=== PATIENT | female | born 1980 | race Two or more races ===

== ENCOUNTER 2024-07-18 18:13 | Emergency (ER) | payer MEDICAID, SELFPAY ==
--- NOTE | 2024-07-18 18:23 | PC.NURSE ---
WHEN CALLED FROM LOBBY FOR ROOM TO BE SEEN, PT WAS FOUND OUTSIDE SMOKING
[2024-07-18 18:28] VITALS: BP 131/86; PULSE 104; RESP 20; TEMP 37.2; O2SAT 99; BMI 25.1
--- NOTE | 2024-07-18 18:40 | XR_ITS ---
Examination: AP lateral soft tissue neck 2 views Technique one AP lateral soft tissue neck 2 views Exam date and time: July 18, 2024 1858 hrs. Indications: Food stuck in throat today. Findings: Adequate alignment cervical vertebral bodies Normal epiglottis No opaque foreign body noted Mild prevertebral soft tissue prominence anterior to C6 and C7 Impression: No opaque foreign body
--- NOTE | 2024-07-18 18:40 | PD.EDRME ---
Rapid Medical Screening Exam E Arrival date/time: 07/18/24 18:13 44F with history of meth use presents to ED with something stuck in throat. Patient unable to drink water at this time. Chief Complaint: Dental/Oral/Throat Time Seen by Provider: 07/18/24 18:46 Vital signs: Vital Signs Temperature 98.9 F 07/18/24 18:28 Pulse Rate 104 H 07/18/24 18:28 Respiratory Rate 20 07/18/24 18:28 Blood Pressure 131/86 H 07/18/24 18:28 Pulse Oximetry (%) 99 07/18/24 18:28 Oxygen Delivery Method Room Air 07/18/24 18:28
[2024-07-18] MEDS: GLUCAGON INJ 1 MG VIAL IM (19:46)
--- NOTE | 2024-07-18 19:54 | EDNOTE_ITS ---
ED General RME/HPI General Chief complaint: Dental/Oral/Throat Stated complaint: FOOD STUCK IN THROAT TODAY Time Seen by Provider: 07/18/24 18:46 Arrival date/time: 07/18/24 18:13 Limitations: no limitations RME / HPI RME / HPI narrative: DR. MARTINES MAIN ED EVALUATION: 44 year old female with past medical history significant for anxiety and methamphetamine abuse presents to the Emergency Department with complaint of something stuck in throat. Patient unable to drink water at this time. Patient has a difficulty swallowing, but can tolerate their saliva. No drooling, chest pain, neck pain, regurgitation of food, or painful swallowing. History of the same in the past. Related Data Previous Rx's ?Medication ?Instructions ?Recorded pantoprazole 40 mg tablet,delayed 40 mg PO QDAY #90 tabs 06/07/21 release (Protonix) pantoprazole 40 mg tablet,delayed 40 mg PO QDAY #30 tabs 09/29/23 release (Protonix) Allergies Allergy/AdvReac Type Severity Reaction Status Date / Time No Known Allergies Allergy Verified 07/18/24 18:16 Review of Systems Review of Systems Systems Reviewed: All systems reviewed, normal except as documented Narrative Review of Systems: CV: no chest pain, Heent: No neck pain, regurgitation of food, or pain with swallowing Past Medical History Past Medical History CARDIAC: Negative Congestive Heart Failure RESPIRATORY: Negative Chronic Obstructive Pulmonary Disease (COPD) GENITOURINARY: Negative Renal Disease ENDOCRINE: Negative Diabetes Mellitus Type 1 or Diabetes Mellitus Type 2 PSYCHO/SOCIAL: Positive Psychiatric Problems, Recreational Drug Use, Depression, Anxiety and Behavior Problems Surgical History SURGICAL: Positive Tubal Ligation Social History SMOKING STATUS: Heavy (> 1 pack/day) ED Exam General Limitations: Present no limitations General appearance: Present alert and in no apparent distress Head Head exam: Present atraumatic Eye Eye exam: Present normal appearance, PERRL and EOMI ENT ENT exam: Present normal exam, normal oropharynx and mucous membranes moist Neck Neck exam: Present normal inspection, full ROM and trachea midline Chest Chest inspection: Present normal inspection and symmetric chest wall rise Respiratory Respiratory exam: Present normal lung sounds bilaterally Cardiovascular Cardiovascular exam: Present regular rate, normal rhythm and normal heart sounds Abdominal Exam Abdominal exam: Present soft and normal bowel sounds Extremities Exam Extremities exam: Present normal inspection and full ROM Back Exam Back exam: Present normal inspection and full ROM Neurological Exam Neurological exam: Present alert, oriented X3 and CN II-XII intact Psychiatric Psychiatric exam: Present normal affect and normal mood Skin Skin exam: Present warm, dry, intact and normal color Course Quality Measures none Orders Category Date Time Status Blood glucose [Bedside Blood Glucose] NOW Care 07/18/24 18:40 Completed XR soft tissue neck Stat Exams 07/18/24 18:40 Completed Glucagon Inj Med 07/18/24 18:40 Discontinued 1 mg IM X1 ONE Glucagon Inj Med 07/18/24 20:00 Discontinued 1 mg IVP X1 ONE Ondansetron Inj [Zofran Inj] Med 07/18/24 20:00 Discontinued 4 mg IV X1 ONE Pantoprazole [Protonix] Med 07/18/24 20:44 Discontinued 20 mg PO X1 ONE Sodium Chloride 0.9% 500 ml [Ns] 500 ml Med 07/18/24 20:00 Discontinued IV 999 mls/hr Vital Signs Vital signs: Vital Signs Temperature 98.9 F 07/18/24 18:28 Pulse Rate 104 H 07/18/24 18:28 Respiratory Rate 20 07/18/24 18:28 Blood Pressure 131/86 H 07/18/24 18:28 Pulse Oximetry (%) 99 07/18/24 18:28 Oxygen Delivery Method Room Air 07/18/24 18:28 [facility] Patient data External records reviewed:: [facility] previous records (Reviewed last ED visit dated 12/16/23, discharged with the following: Foreign body of esophagus.) Clinical information provided by:: patient Social determinants that could affect healthcare access:: substance use Patient has the following chronic illnesses:: Anxiety and methamphetamine abuse. How is presenting disease/condition affected by chronic disease/condition?: exacerbated by Evaluation data The following diagnostics were reviewed and interpreted by me:: radiology exam(s) Lab and/or radiology exams considered but not ordered:: none Interpretation Summary: Procedure(s): XR soft tissue neck Accession Number(s): [id number] cc: Jorge Mittal MD; John Iglesias PA-C~ Examination: AP lateral soft tissue neck 2 views Technique one AP lateral soft tissue neck 2 views Exam date and time: July 18, 2024 1858 hrs. Indications: Food stuck in throat today. Findings: Adequate alignment cervical vertebral bodies Normal epiglottis No opaque foreign body noted Mild prevertebral soft tissue prominence anterior to C6 and C7 Impression: No opaque foreign body Dictated By: Jorge Mittal MD Medications Medications considered but not ordered:: none Medication administrations:: Medication Administration History Discontinued Medications Glucagon (Glucagon Inj 1 Mg Vial) 1 mg IM X1 ONE Stop: 07/18/24 18:41 Last Admin: 07/18/24 19:46 Dose: 1 mg Documented By: HAYDER Glucagon (Glucagon Inj 1 Mg Vial) 1 mg IVP X1 ONE Stop: 07/18/24 20:01 Last Admin: 07/18/24 21:15 Dose: Not Given Documented By: HAYDER Non-Admin Reason: Duplicate Medication on eMAR Sodium Chloride (Ns) 500 mls @ 999 mls/hr IV .Q31M ONE Stop: 07/18/24 20:30 Last Admin: 07/18/24 20:59 Dose: Not Given Documented By: JAMES Non-Admin Reason: Discontinued Ondansetron HCl (Ondansetron Inj 2 Mg/Ml Inj 2 Ml) 4 mg IV X1 ONE; Protocol Stop: 07/18/24 20:01 Last Admin: 07/18/24 20:59 Dose: Not Given Documented By: JAMES Non-Admin Reason: Discontinued Pantoprazole Sodium (Pantoprazole 20 Mg Tablet) 20 mg PO X1 ONE Stop: 07/18/24 20:45 Last Admin: 07/18/24 20:59 Dose: Not Given Documented By: JAMES Non-Admin Reason: Discontinued see above Consultations Consultation(s) initiated? (list below): No Diagnosis Differential Diagnosis ED Complaint MDM: Foreign body of esophagus, esophagus cancer, other Most likely diagnosis given after review of the tests above:: Foreign body of esophagus. Admission Indicated Admission indicated?: not indicated Explain why admission is indicated or not indicated:: tolpo Admission Request Was there a request for admission?: No Disposition Plan Disposition Plan: Discharge Discharge Attestation Discharge Attestation: The patient and all family members were given an opportunity to ask questions and understood the discharge instructions. Discharge instructions specifically effects, indications for sooner follow up or return to the emergency department, and the expected course of current diagnosis. Patient condition: Stable Medical Decision Making MDM Narrative MDM Narrative: IClementine, am scribing for and in the presence of Dr. Martines. Differential Diagnosis Differential Diagnosis: Foreign body of esophagus, esophagus cancer, other Discharge Plan Plan Patient Disposition: HOME (Self Care) Patient condition on transfer: Stable Prescriptions/Referrals Prescriptions/Med Rec: No Action pantoprazole [Protonix] 40 mg Tablet,Delayed Release (Dr/Ec) 40 mg PO QDAY Qty: 90 0RF pantoprazole [Protonix] 40 mg tablet,delayed release (DR/EC) 40 mg PO QDAY Qty: 30 0RF Referrals: Lux Joyner MD [Primary Care Provider] - In 1 week Problem List Clinical Impression: Esophageal foreign body Patient/Caregiver Discharge Instructions Diet Instructions: Ensure you are chewing your food and/or blend it to avoid getting a food impaction. Education Materials: ED Swallowed Foreign Body (Adult) Additional Instructions: You will need to get a follow-up appointment with your primary care physician to get a referral to animal feeder in the next 2 to 4 weeks. Return to emergency department worsening symptoms or any other concerns peer Print Language: Korean Stand Alone Forms: [facility] Award Info., Patient Portal Info Letter
== END 2024-07-18 21:17 | disposition home or self-care (01) ==
PROVIDERS: Emergency Provider Emergency Medicine; PCP Family Medicine
DX: T18.128A Food in esophagus causing other injury, initial encounter (principal); W44.F3XA Food entering into or through a natural orifice, initial encounter
CPT/HCPCS: 70360; 96372; 99283; J1610

== ENCOUNTER 2024-08-23 12:20 | Emergency (ER) | payer MEDICAID, SELFPAY ==
--- NOTE | 2024-08-23 12:24 | XR_ITS ---
Examination: Knee, right , 3 views Technique: Knee AP, lateral, oblique 3 views Date and time of exam: August 23, 2024 1322 hrs. Indications: Right knee pain beginning 3 days ago Findings: Moderate osteopenia No fracture No dislocation Moderate to large knee effusion Impression: No fracture Moderate to large knee effusion, seen with internal derangement of the knee
--- NOTE | 2024-08-23 12:25 | EDNOTE_ITS ---
ED General RME/HPI General Chief complaint: Extremity Injury, Lower Stated complaint: RIGHT KNEE PAIN Time Seen by Provider: 08/23/24 12:24 Arrival date/time: 08/23/24 12:20 RME / HPI RME / HPI narrative: 44-year-old female patient came in for evaluation regarding right knee pain. 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 Onset of symptoms earlier this morning. Patient denies any trauma or fall. Denies any fever. Denies any other complaints. Patient told me that she is having difficulty ambulating due to pain. Patient took ibuprofen earlier today with no relief. Related Data Previous Rx's ?Medication ?Instructions ?Recorded pantoprazole 40 mg tablet,delayed 40 mg PO QDAY #90 tabs 06/07/21 release (Protonix) pantoprazole 40 mg tablet,delayed 40 mg PO QDAY #30 tabs 09/29/23 release (Protonix) ibuprofen 800 mg tablet 800 mg PO TID PRN pain #30 tabs 08/23/24 Allergies Allergy/AdvReac Type Severity Reaction Status Date / Time No Known Allergies Allergy Verified 07/18/24 18:16 Review of Systems Review of Systems Narrative Review of Systems: Review of system reviewed and within normal limits except mentioned in HPI ED Exam Narrative Physical exam: VITAL SIGNS: Reviewed. GENERAL APPEARANCE: Alert and interactive, follows commands, no acute distress, HEAD AND FACE: Non-traumatic. ENT: PERRL, pink conjunctivitis, eyelid no trauma, Mucous membrane moist. NECK: Supple, nontender, no nuchal rigidity. CHEST: No tenderness, no crepitus, no paradoxical movement, no retractions. LUNGS: Clear, well ventilated, symmetric, no rales, no wheezing, no ronchi, no stridor, good breath sounds bilaterally. HEART: Regular rate, regular rhythm, no murmur, no gallops. ABDOMEN: Soft, positive bowel sounds, nondistended, no guarding, nontender, no rebound, no masses, RECTAL: Deferred. GENITAL: Deferred. NEUROLOGICAL: Gross motor function intact sensory function intact, Appropriate for age. MUSCULOSKELETAL: low back nontender, full range of motion. EXTREMITIES: Right knee tenderness, no swelling no redness no deformity, full r joseph of motion. No calf muscle tenderness SKIN: Color pink, dry, no rash, no lacerations, no abrasions, no contusions. LYMPHATICS: Deferred. Course Quality Measures none Orders Category Date Time Status Crutches .NOW Care 08/23/24 12:24 Active XR knee limited RT 2V Stat Exams 08/23/24 12:24 Completed Ketorolac Inj [Toradol Inj] Med 08/23/24 12:24 Discontinued 30 mg IM X1 ONE Referral Safety Admin Assistant NOW SS 08/23/24 15:17 Active Vital Signs Vital signs: Vital Signs Temperature 98.7 F 08/23/24 14:06 Pulse Rate 83 08/23/24 14:06 Respiratory Rate 18 08/23/24 14:06 Blood Pressure 93/61 08/23/24 14:06 Pulse Oximetry (%) 100 08/23/24 14:06 Oxygen Delivery Method Room Air 08/23/24 14:06 MDM Patient data External records reviewed:: None Clinical information provided by:: patient Social determinants that could affect healthcare access:: housing Patient has the following chronic illnesses:: None How is presenting disease/condition affected by chronic disease/condition?: no chronic disease Evaluation data The following diagnostics were reviewed and interpreted by me:: radiology exam(s) Lab and/or radiology exams considered but not ordered:: None Interpretation Summary: X-ray of the knee right showed No fracture Moderate to large knee effusion, seen with internal derangement of the knee Medications Medications considered but not ordered:: None Medication administrations:: Medication Administration History Discontinued Medications Ketorolac Tromethamine (Ketorolac Inj 60 Mg/2 Ml Vial) 30 mg IM X1 ONE Stop: 08/23/24 12:25 Last Admin: 08/23/24 13:51 Dose: 30 mg Documented By: Toradol IM Consultations Consultation(s) initiated? (list below): No Diagnosis Differential Diagnosis ED Complaint MDM: Knee pain, knee effusion, knee sprain Most likely diagnosis given after review of the tests above:: Knee pain Admission Indicated Admission indicated?: not indicated Explain why admission is indicated or not indicated:: Stable Admission Request Was there a request for admission?: No Disposition Plan Disposition Plan: Discharge Discharge Attestation Discharge Attestation: The patient and all family members were given an opportunity to ask questions and understood the discharge instructions. Discharge instructions specifically effects, indications for sooner follow up or return to the emergency department, and the expected course of current diagnosis. Patient condition: Stable Medical Decision Making MDM Narrative MDM Narrative: 44-year-old female patient came in for evaluation regarding right knee pain. 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 Onset of symptoms earlier this morning. Patient denies any trauma or fall. Denies any fever. Denies any other complaints. Patient told me that she is having difficulty ambulating due to pain. Patient took ibuprofen earlier today with no relief. X-ray of the knee No fracture Moderate to large knee effusion, seen with internal derangement of the knee Patient was referred to [facility] for some hypertensive issues help regarding being homelessness. Was seen by [facility] and was given resources Differential Diagnosis Differential Diagnosis: Knee pain, knee effusion, knee sprain Discharge Plan Plan Patient Disposition: HOME (Self Care) Disposition Comment: stable Prescriptions/Referrals Prescriptions/Med Rec: New ibuprofen 800 mg tablet 800 mg PO TID PRN (Reason: pain) Qty: 30 0RF No Action pantoprazole [Protonix] 40 mg Tablet,Delayed Release (Dr/Ec) 40 mg PO QDAY Qty: 90 0RF pantoprazole [Protonix] 40 mg tablet,delayed release (DR/EC) 40 mg PO QDAY Qty: 30 0RF Referrals: Lux Joyner MD [Primary Care Provider] - In 1 week Problem List Clinical Impression: Acute knee pain Patient/Caregiver Discharge Instructions Discharge Activity: activity as tolerated Education Materials: Knee Pain Additional Instructions: Thank you for the opportunity for serving you today. You are stable for discharged . You are advised to: Follow-up with your PCP in 1 to 2 days Return to ED for worsening of symptoms Increase oral fluids Take medication as prescribed Ambulate with crutches as needed Print Language: Wolof Stand Alone Forms: [employer] Award Info., Patient Portal Info Letter PA/YAEL Supervising Physician PA/YAEL Supervising Physician: MD James
[2024-08-23 13:00] VITALS: PULSE 86; RESP 18; O2SAT 96; BMI 25.7
[2024-08-23] MEDS: KETOROLAC INJ 60 MG/2 ML VIAL 30 MG IM (13:51)
[2024-08-23 14:06] VITALS: BP 93/61; PULSE 83; RESP 18; TEMP 37.1; O2SAT 100
--- NOTE | 2024-08-23 21:00 | PC.NURSE ---
CALLED PT FOR DC AND NO ANSWER
--- NOTE | 2024-08-23 21:15 | PC.NURSE ---
CALLED PT FOR DC AND NO ANSWER
--- NOTE | 2024-08-23 21:16 | PC.NURSE ---
CALLED PT FOR DC AND NO ANSWER.
== END 2024-08-23 21:17 | disposition home or self-care (01) ==
PROVIDERS: Emergency Provider Emergency Medicine; PCP Family Medicine
DX: M25.561 Pain in right knee (principal); Z59.00 Homelessness unspecified
CPT/HCPCS: 73560; 96372; 99283; J1885

== ENCOUNTER 2024-08-28 15:08 | Emergency (ER) | payer MEDICAID, SELFPAY ==
[2024-08-28 15:11] VITALS: BP 104/67; PULSE 87; RESP 18; TEMP 37.4; O2SAT 96; BMI 25.7
[2024-08-28 15:14] VITALS: PULSE 97; RESP 18; O2SAT 96
--- NOTE | 2024-08-28 15:45 | XR_ITS ---
Examination: PA lateral chest 2 views TECHNIQUE: Upright PA lateral chest 2 views Exam date and time: August 28, 2024 1537 hours INDICATIONS: Coughing today. FINDINGS: Normal heart size No lobar pneumonia The osseous structures are intact IMPRESSION: No lobar pneumonia identified
--- NOTE | 2024-08-28 15:46 | EDNOTE_ITS ---
Upper Respiratory Inf. RME/HPI General Stated Complaint: BODY ACHES Time Seen by Provider: 08/28/24 15:14 Source: patient Arrival date/time: 08/28/24 15:08 44-year-old female with no known medical history presents to the emergency room with a chief complaint of bodyaches, cough, fever, congestion x 2 days Mode of arrival: ambulatory Limitations: no limitations Related Data Previous Rx's ?Medication ?Instructions ?Recorded pantoprazole 40 mg tablet,delayed 40 mg PO QDAY #90 ta bs 06/07/21 release (Protonix) pantoprazole 40 mg tablet,delayed 40 mg PO QDAY #30 ta bs 09/29/23 release (Protonix) ibuprofen 800 mg tablet 800 mg PO TID PRN pain #30 t abs 08/23/24 acetaminophen 325 mg capsule 650 mg (2 x 325 mg) PO QI D PRN 08/28/24 fever or pain 7 days #30 caps Allergies Allergy/AdvReac Type Severity Reaction Status Date / Time No Known Allergies Allergy Verified 07/18/24 18:16 Review of Systems Review of Systems Systems Reviewed: All systems reviewed, normal except as documented Constitutional Constitutional: Reports system reviewed and no additional complaints, except as documented, Denies fatigue, Reports fever(s), Reports headache(s) and Reports weakness Eyes Eyes: Reports system reviewed and no additional complaints, except as documented, Denies blurry vision and Denies change in vision ENT Ears, Nose, Mouth, and Throat: Reports system reviewed and no additional complaints, except as documented, Denies otalgia, Reports headache(s), Denies nasal congestion, Denies throat swelling and Denies vertigo Cardiovascular Cardiovascular: Reports system reviewed and no additional complaints, except as documented, Denies chest pain, Reports dyspnea and Denies dyspnea on exertion Respiratory Respiratory: Reports system reviewed and no additional complaints, except as documented, Reports chest congestion, Reports cough, Reports dyspnea, Denies dyspnea on exertion and Denies wheezing Gastrointestinal Gastrointestinal: Reports system reviewed and no additional complaints, except as documented, Denies abdominal pain, Denies cramping, Denies nausea and Denies vomiting Genitourinary Genitourinary: Reports system reviewed and no additional complaints, except as documented Musculoskeletal Musculoskeletal: Reports system reviewed and no additional complaints, except as documented and Denies back pain Integumentary/Breasts Skin/Breast: Reports system reviewed and no additional complaints, except as documented and Denies wounds Neurologic Neurologic: Reports system reviewed and no additional complaints, except as documented, Denies confusion, Reports headache(s), Denies lack of coordination, Denies vertigo and Reports weakness Psychiatric Psychiatric: Reports system reviewed and no additional complaints, except as documented, Denies anxiety, Denies confusion, Denies depression, Denies paranoia, Denies suicidal ideation and Denies tactile hallucinations Endocrine Endocrine: Reports system reviewed and no additional complaints, except as documented and Denies fatigue Hematologic/Lymphatic Hematologic/Lymphatic: Reports system reviewed and no additional complaints, except as documented and Denies lymphadenopathy Allergic/Immunologic Allergic/Immunologic: Reports system reviewed and no additional complaints, except as documented, Denies throat swelling, Denies urticaria and Denies wheezing Past Medical History Past Medical History CARDIAC: Negative Congestive Heart Failure RESPIRATORY: Negative Chronic Obstructive Pulmonary Disease (COPD) GENITOURINARY: Negative Renal Disease ENDOCRINE: Negative Diabetes Mellitus Type 1 or Diabetes Mellitus Type 2 PSYCHO/SOCIAL: Positive Psychiatric Problems, Recreational Drug Use, Depression, Anxiety and Behavior Problems Surgical History SURGICAL: Positive Tubal Ligation Social History SMOKING STATUS: Current some day smoker ED Exam General Limitations: Present no limitations General appearance: Present alert and in no apparent distress Head Head exam: Present atraumatic Eye Eye exam: Present normal appearance, PERRL and EOMI ENT ENT exam: Present normal exam, normal oropharynx and mucous membranes moist Neck Neck exam: Present normal inspection, full ROM and trachea midline Chest Chest inspection: Present normal inspection and symmetric chest wall rise Respiratory Respiratory exam: Present normal lung sounds bilaterally; Absent respiratory distress, wheezes, stridor, accessory muscle use or prolonged expiratory phase Cardiovascular Cardiovascular exam: Present regular rate, normal rhythm and normal heart sounds Abdominal Exam Abdominal exam: Present soft and normal bowel sounds Extremities Exam Extremities exam: Present normal inspection and full ROM Back Exam Back exam: Present normal inspection and full ROM Neurological Exam Neurological exam: Present alert, oriented X3 and CN II-XII intact Psychiatric Psychiatric exam: Present normal affect and normal mood Skin Skin exam: Present warm, dry, intact and normal color Course Quality Measures none Orders Category Date Time Status Bedside COVID-19 Antigen Test NOW Care 08/28/24 15:45 Active Bedside Influenza A&B Antigen Test NOW Care 08/28/24 15:45 Completed XR chest 2V Stat Exams 08/28/24 15:45 Completed Acetaminophen Tab [Tylenol ES Tab] Med 08/28/24 15:46 Discontinued 1,000 mg PO X1 ONE Vital Signs Vital signs: Vital Signs Temperature 99.4 F 08/28/24 15:11 Pulse Rate 87 08/28/24 15:11 Respiratory Rate 18 08/28/24 15:11 Blood Pressure 104/67 08/28/24 15:11 Pulse Oximetry (%) 96 08/28/24 15:11 Oxygen Delivery Method Room Air 08/28/24 15:11 O2 saturation 96% within normal limits Upper Respiratory Infection MDM Narrative MDM Narrative:: 44-year-old female with no known medical history presents to the emergency room with a chief complaint of bodyaches, cough, fever, congestion x 2 days The patient is hemodynamically stable and in no apparent distress. Patient has clear bilateral lung sounds with no wheezing stridor or any abnormal breath sounds. Influenza a test was positive. COVID-19 was negative. Chest x-ray was negative for any pneumonic infiltrates. Patient was discharged and educated to follow-up with primary care provider and return to the emergency room for any evidence of worsening signs or symptoms Patient data External records reviewed:: [facility] previous records Clinical information provided by:: patient Social determinants that could affect healthcare access:: none Patient has the following chronic illnesses:: No chronic illness How is presenting disease/condition affected by chronic disease/condition?: no chronic disease Evaluation data The following diagnostics were reviewed and interpreted by me:: lab results and radiology exam(s) Lab and/or radiology exams considered but not ordered:: Labs and radiology exams considered and ordered Interpretation Summary: Chest x-ray-no pneumonic infiltrates Medications / Prescriptions Medications or Prescriptions considered but not ordered:: Medication given Medication administrations:: Medication Administration History Discontinued Medications Acetaminophen (Acetaminophen 500 Mg Tablet) 1,000 mg PO X1 ONE Stop: 08/28/24 15:47 Last Admin: 08/28/24 16:02 Dose: 1,000 mg Documented By: Medication given Consultations Consultation(s) initiated? (list below): No Diagnosis Upper Respiratory Differential Diagnosis: upper respiratory infection, viral infection, bronchitis, influenza and pharyngitis Most likely diagnosis given after review of the tests above:: Influenza a Admission Indicated Admission indicated?: not indicated Admission Request Was there a request for admission?: No Disposition Plan Disposition Plan: Discharge Discharge Attestation Discharge Attestation: The patient and all family members were given an opportunity to ask questions and understood the discharge instructions. Discharge instructions specifically effects, indications for sooner follow up or return to the emergency department, and the expected course of current diagnosis. Patient condition: Stable Discharge Plan Plan Patient Disposition: HOME (Self Care) Disposition Comment: Stable Prescriptions/Referrals Prescriptions/Med Rec: New acetaminophen 325 mg capsule 650 mg PO QID PRN (Reason: fever or pain) 7 Days Qty: 30 0RF No Action pantoprazole [Protonix] 40 mg Tablet,Delayed Release (Dr/Ec) 40 mg PO QDAY Qty: 90 0RF ibuprofen 800 mg tablet 800 mg PO TID PRN (Reason: pain) Qty: 30 0RF pantoprazole [Protonix] 40 mg tablet,delayed release (DR/EC) 40 mg PO QDAY Qty: 30 0RF Referrals: Lux Joyner MD [Primary Care Provider] - In 1 week Problem List Clinical Impression: Influenza A Patient/Caregiver Discharge Instructions Education Materials: ED Influenza (Adult) Additional Instructions: Please follow-up with your primary care provider in the next 24 to 48 hours. Your influenza test was positive for influenza A. For any evidence of worsening signs or symptoms please return to the emergency room immediately. Please continue to take Tylenol and ibuprofen for fever management and increase your fluid and oral intake. Print Language: Faroese Stand Alone Forms: Ira Award Info., Patient Portal Info Letter PA/YAEL Supervising Physician PA/YAEL Supervising Physician: Dr. Orantes
[2024-08-28] MEDS: ACETAMINOPHEN 500 MG TABLET 1000 MG PO (16:02)
--- NOTE | 2024-08-28 17:11 | PC.CC ---
Paula AYON was consulted regarding patient needing to speak to social media specialist. Paula AYON made [id number] contact with patient. ASW introduced self, role, and reason for visit. Patient appeared alert and oriented to self, location, and situation.?Patient reports she is homeless and has been sleeping at a local park. ASW provided patient with a [facility] resource guide. Patient reports she is physically not feeling well and would like some medication. ASW provided this updated information to anders Carl.
== END 2024-08-28 17:31 | disposition home or self-care (01) ==
PROVIDERS: Emergency Provider Emergency Medicine; PCP Family Medicine
DX: J10.1 Influenza due to other identified influenza virus with other respiratory manifestations (principal); F17.210 Nicotine dependence, cigarettes, uncomplicated
CPT/HCPCS: 71046; 87400; 87811; 99283; A9270

== ENCOUNTER 2024-08-29 03:38 | Emergency (ER) | payer MEDICAID, SELFPAY ==
[2024-08-29 03:39] VITALS: PULSE 89; RESP 18; BMI 24.7
[2024-08-29 03:55] VITALS: BP 132/85; PULSE 89; RESP 18; TEMP 36.8; O2SAT 100
[2024-08-29] MEDS: ACETAMINOPHEN 500 MG TABLET 1000 MG PO (04:03)
[2024-08-29] MEDS: NAPROXEN 250 MG TABLET 500 MG PO (04:03)
--- NOTE | 2024-08-29 04:05 | EDNOTE_ITS ---
Upper Respiratory Inf. RME/HPI General Chief Complaint: Flu Like Symptoms Stated Complaint: FULL BODY ACHES,FLU + Time Seen by Provider: 08/29/24 03:57 Arrival date/time: 08/29/24 03:38 44F with history of homelessness and drug abuse presents to ED with body aches. Patient was here yesterday and diagnosed with flu A. 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 Patient would also like a blanket and some food. Limitations: no limitations Related Data Previous Rx's ?Medication ?Instructions ?Recorded pantoprazole 40 mg tablet,delayed 40 mg PO QDAY #90 ta bs 06/07/21 release (Protonix) pantoprazole 40 mg tablet,delayed 40 mg PO QDAY #30 ta bs 09/29/23 release (Protonix) ibuprofen 800 mg tablet 800 mg PO TID PRN pain #30 t abs 08/23/24 acetaminophen 325 mg capsule 650 mg (2 x 325 mg) PO QI D PRN 08/28/24 fever or pain 7 days #30 caps Allergies Allergy/AdvReac Type Severity Reaction Status Date / Time No Known Allergies Allergy Verified 07/18/24 18:16 Review of Systems Review of Systems Systems Reviewed: All systems reviewed, normal except as documented Constitutional Constitutional: Reports system reviewed and no additional complaints, except as documented, Reports as per HPI, Reports body ache(s), Denies fever(s) and Denies headache(s) ENT Ears, Nose, Mouth, and Throat: Denies disequilibrium and Denies headache(s) Cardiovascular Cardiovascular: Reports system reviewed and no additional complaints, except as documented, Denies chest pain and Denies dyspnea Respiratory Respiratory: Reports system reviewed and no additional complaints, except as documented, Denies cough and Denies dyspnea Gastrointestinal Gastrointestinal: Reports system reviewed and no additional complaints, except as documented, Denies abdominal pain, Denies nausea and Denies vomiting Neurologic Neurologic: Reports system reviewed and no additional complaints, except as documented, Denies confusion, Denies disequilibrium and Denies headache(s) Psychiatric Psychiatric: Denies confusion Past Medical History Past Medical History CARDIAC: Negative Congestive Heart Failure RESPIRATORY: Negative Chronic Obstructive Pulmonary Disease (COPD) GENITOURINARY: Negative Renal Disease ENDOCRINE: Negative Diabetes Mellitus Type 1 or Diabetes Mellitus Type 2 PSYCHO/SOCIAL: Positive Psychiatric Problems, Recreational Drug Use, Depression, Anxiety and Behavior Problems Surgical History SURGICAL: Positive Tubal Ligation Social History SMOKING STATUS: Never smoker ED Exam General Limitations: Present no limitations General appearance: Present alert and in no apparent distress Head Head exam: Present atraumatic Eye Eye exam: Present normal appearance, PERRL and EOMI ENT ENT exam: Present normal exam, normal oropharynx and mucous membranes moist Neck Neck exam: Present normal inspection, full ROM and trachea midline Chest Chest inspection: Present normal inspection and symmetric chest wall rise Respiratory Respiratory exam: Present normal lung sounds bilaterally Cardiovascular Cardiovascular exam: Present regular rate, normal rhythm and normal heart sounds Abdominal Exam Abdominal exam: Present soft and normal bowel sounds Extremities Exam Extremities exam: Present normal inspection and full ROM Back Exam Back exam: Present normal inspection and full ROM Neurological Exam Neurological exam: Present alert, oriented X3 and CN II-XII intact Psychiatric Psychiatric exam: Present normal affect and normal mood Skin Skin exam: Present warm, dry, intact and normal color Course Quality Measures none Orders Category Date Time Status Acetaminophen Tab [Tylenol ES Tab] Med 08/29/24 03:57 Discontinued 1,000 mg PO X1 ONE Naproxen [Naprosyn] Med 08/29/24 03:57 Discontinued 500 mg PO X1 ONE Vital Signs Vital signs: Vital Signs Temperature 98.2 F 08/29/24 03:55 Pulse Rate 89 08/29/24 03:55 Respiratory Rate 18 08/29/24 03:55 Blood Pressure 132/85 H 08/29/24 03:55 Pulse Oximetry (%) 100 08/29/24 03:55 Oxygen Delivery Method Room Air 08/29/24 03:55 O2 at 100% on RA and WNLs Upper Respiratory Infection MDM Narrative MDM Narrative:: 44F with history of homelessness and drug abuse presents to ED with body aches. Patient was here yesterday and diagnosed with flu A. 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 Patient would also like a blanket and some food. Physical exam reveals clear ENT and lungs. Patient is afebrile, calm, and alert. Food and meds given. Patient data External records reviewed:: [facility] previous records Clinical information provided by:: patient Social determinants that could affect healthcare access:: substance use Patient has the following chronic illnesses:: homelessness and drug use How is presenting disease/condition affected by chronic disease/condition?: exacerbated by Evaluation data The following diagnostics were reviewed and interpreted by me:: other (specify) (none) Lab and/or radiology exams considered but not ordered:: not ordered Interpretation Summary: n/a Medications / Prescriptions Medications or Prescriptions considered but not ordered:: ordered Medication administrations:: Medication Administration History Discontinued Medications Acetaminophen (Acetaminophen 500 Mg Tablet) 1,000 mg PO X1 ONE Stop: 08/29/24 03:58 Last Admin: 08/29/24 04:03 Dose: 1,000 mg Documented By: POLLY Naproxen (Naproxen 250 Mg Tablet) 500 mg PO X1 ONE Stop: 08/29/24 03:58 Last Admin: 08/29/24 04:03 Dose: 500 mg Documented By: POLLY above Consultations Consultation(s) initiated? (list below): No Diagnosis Upper Respiratory Differential Diagnosis: upper respiratory infection, croup, otitis media, sinusitis, viral infection, bronchitis, influenza and pharyngitis Most likely diagnosis given after review of the tests above:: flu A Admission Indicated Admission indicated?: not indicated Admission Request Was there a request for admission?: No Disposition Plan Disposition Plan: Discharge Discharge Attestation Discharge Attestation: The patient and all family members were given an opportunity to ask questions and understood the discharge instructions. Discharge instructions specifically effects, indications for sooner follow up or return to the emergency department, and the expected course of current diagnosis. Patient condition: Stable Discharge Plan Plan Patient Disposition: HOME (Self Care) Disposition Comment: Stable Prescriptions/Referrals Prescriptions/Med Rec: No Action pantoprazole [Protonix] 40 mg Tablet,Delayed Release (Dr/Ec) 40 mg PO QDAY Qty: 90 0RF ibuprofen 800 mg tablet 800 mg PO TID PRN (Reason: pain) Qty: 30 0RF acetaminophen 325 mg capsule 650 mg PO QID PRN (Reason: fever or pain) 7 Days Qty: 30 0RF pantoprazole [Protonix] 40 mg tablet,delayed release (DR/EC) 40 mg PO QDAY Qty: 30 0RF Referrals: Lux Joyner MD [Primary Care Provider] - In 1 week Problem List Clinical Impression: Influenza Patient/Caregiver Discharge Instructions Education Materials: ED Influenza (Adult) Additional Instructions: Please follow-up with PCP within 24-48 hours and return immediately if symptoms worsen. Ibuprofen/Tylenol can be used simultaneously for greater fever/pain control. Benadryl is good for cough, congestion, and sleep. Print Language: Venezuelan Stand Alone Forms: Patient Portal Info Letter PA/MANAGER TRUCK Supervising Physician PA/MANAGER TRUCK Supervising Physician: Dr. Tabares
== END 2024-08-29 04:11 | disposition home or self-care (01) ==
PROVIDERS: Emergency Provider Emergency Medicine; PCP Family Medicine
DX: J10.1 Influenza due to other identified influenza virus with other respiratory manifestations (principal)
CPT/HCPCS: 99282; A9270

== ENCOUNTER 2024-08-29 16:00 | Inpatient (IN) | payer MEDICAID, SELFPAY ==
[2024-08-29] VITALS (13 sets, daily range): BP systolic 75–96; BP diastolic 47–70; PULSE 60–91; RESP 7–20; TEMP 36.4–36.6; O2SAT 95–100; BMI 23.9
[2024-08-29] MEDS: SODIUM CHLORIDE 0.9% 1000 ML 1,000 ML 999 ML IV ×3 (16:20→18:56)
--- NOTE | 2024-08-29 16:29 | PD.EDSYNC ---
ED Syncope RME/HPI General Chief Complaint: Syncope / Near Syncope Stated Complaint: SYNCOPE Time Seen by Provider: 08/29/24 16:14 Arrival date/time: 08/29/24 16:00 RME / HPI RME / HPI narrative: This section includes all my notes and documentations, including HPI, PE, and ED course. Tono Orantes MD HPI: 44-year-old female here to be evaluated after syncopal episode and/or falling just prior to arrival at outside parking lot. Yesterday, she was diagnosed with influenza here. She recalls walking in the parking lot. But doesn't recall the details. Uncertain if she passed out then fell or the other around. But EMS picked her up from the parking lot, she was on her right side. She reports diffuse aches and pain. She reports no headache or dizziness. No neck pain. She reports back pain, difficult to localize. No chest pain or abdominal pain. No shortness of breath. No pain in the arms or legs. No other complaints. ROS: All negative except as documented in HPI. Physical Exam: General: Alert and oriented. Appears uncomfortable. Low BP noted. Eyes: Conjunctivae and lids clear. EOMI. PERRL. ENT: No signs of trauma. Neck: Supple. No carotid bruit. No JVD. No tenderness. Heart: RRR. Lungs: No respiratory distress. Good air movement. No significant rhonchi, wheezing, rales. Chest: No tenderness. Abdomen: Soft and nontender. Normal bowel sounds. No distension. No rebound or guarding. Back: No tenderness. Legs: No clubbing, cyanosis, edema. Skin: Warm and dry. Neuro: Alert and oriented X 3. Cranial Nerves II-XII grossly intact. No peripheral motor deficits. Musculoskeletal: All major joints and bones are not tender with no limited ROM. I reviewed EMS notes. I ordered IVF and diagnostic tests. At 6 PM on 08/29/24, the care of the patient was transferred to Dr. Tabares. Tono Orantes MD Related Data Previous Rx's ?Medication ?Instructions ?Recorded pantoprazole 40 mg tablet,delayed 40 mg PO QDAY #90 tabs 06/07/21 release (Protonix) pantoprazole 40 mg tablet,delayed 40 mg PO QDAY #30 tabs 09/29/23 release (Protonix) ibuprofen 800 mg tablet 800 mg PO TID PRN pain #30 tabs 08/23/24 acetaminophen 325 mg capsule 650 mg (2 x 325 mg) PO QID PRN 08/28/24 fever or pain 7 days #30 caps Allergies Allergy/AdvReac Type Severity Reaction Status Date / Time No Known Allergies Allergy Verified 07/18/24 18:16 Course Quality Measures none Orders Category Date Time Status Insert IV NOW Care 08/29/24 16:17 Active Oseltamivir [Tamiflu] Med 08/29/24 16:29 Discontinued 75 mg PO X1 ONE Sodium Chloride 0.9% 1000 ml [Ns] 1,000 ml Med 08/29/24 16:18 Active IV 999 mls/hr Vital Signs Vital signs: Vital Signs Temperature 97.5 F 08/29/24 16:02 Pulse Rate 60 08/29/24 16:02 Respiratory Rate 20 08/29/24 16:02 Blood Pressure 82/55 L 08/29/24 16:02 Pulse Oximetry (%) 95 08/29/24 16:02 Oxygen Delivery Method Room Air 08/29/24 16:02 Syncope Patient data External records reviewed:: [facility] previous records and EMS form Clinical information provided by:: patient and EMS Social determinants that could affect healthcare access:: housing Patient has the following chronic illnesses:: Gastritis How is presenting disease/condition affected by chronic disease/condition?: uneffected by Evaluation data The following diagnostics were reviewed and interpreted by me:: other (specify) (Diagnostic tests pending) Lab and/or radiology exams considered but not ordered:: None Interpretation Summary: Diagnostic tests pending Medications / Prescriptions Medications or Prescriptions considered but not ordered:: None Medication administrations:: Medication Administration History Sodium Chloride (Ns) 1,000 mls @ 999 mls/hr IV .Q1H1M ONE Stop: 08/29/24 17:18 Last Admin: 08/29/24 16:20 Dose: 999 mls/hr Documented By: DB Discontinued Medications Oseltamivir Phosphate (Oseltamivir 75 Mg Capsule) 75 mg PO X1 ONE Stop: 08/29/24 16:30 I ordered IV fluid and Tamiflu Consultations Consultation(s) initiated? (list below): No Diagnosis Syncope Differential Diagnosis: syncope due to orthostatic hypotension, vasovagal syncope, complete atrioventricular block, subarachnoid hemorrhage, pulmonary embolism and dehydration Most likely diagnosis given after review of the tests above:: Diagnostic tests pending Admission Indicated Admission indicated?: not indicated Explain why admission is indicated or not indicated:: Diagnostic tests pending Admission Request Was there a request for admission?: No Disposition Plan Disposition Plan: other (specify) (Care of the patient was transferred to Dr. Tabares) Discharge Plan Prescriptions/Referrals Prescriptions/Med Rec: No Action pantoprazole [Protonix] 40 mg Tablet,Delayed Release (Dr/Ec) 40 mg PO QDAY Qty: 90 0RF ibuprofen 800 mg tablet 800 mg PO TID PRN (Reason: pain) Qty: 30 0RF acetaminophen 325 mg capsule 650 mg PO QID PRN (Reason: fever or pain) 7 Days Qty: 30 0RF pantoprazole [Protonix] 40 mg tablet,delayed release (DR/EC) 40 mg PO QDAY Qty: 30 0RF Problem List Clinical Impression: Syncope Patient/Caregiver Discharge Instructions Print Language: Hungarian
[2024-08-29] MEDS: OSELTAMIVIR 75 MG CAPSULE PO (16:35)
--- NOTE | 2024-08-29 16:38 | EKG_ITS ---
[facility] Test Date: 2024-08-29 Pat Name: KIMMIE SOUTH Department: Room: - Gender: Female Form Carpenter: : 1980 Requested By: Tono Goodman Order Number: [id number] Reading MD: Tono Goodman Measurements Intervals [place] Rate: 73 P: 44 [place]: 127 QRS: 57 QRSD: 93 T: 54 QT: 415 QTc: 460 Interpretive Statements SINUS RHYTHM NONSPECIFIC T-WAVE ABNORMALITY Compared to ECG 09/29/2023 18:44:22 Sinus tachycardia no longer present T-wave abnormality still present /store/S0/[id number].pdf
--- NOTE | 2024-08-29 16:38 | XR_ITS ---
Examination: AP chest single view TECHNIQUE: AP portable semiupright chest single view Standing time: August 29, 2024 1806 hours Comparison August 28, 2024 INDICATION: Shortness of breath today. FINDINGS: Mild bibasilar pneumonia. Normal heart size Mild osteopenia IMPRESSION: Mild bibasilar pneumonia
--- NOTE | 2024-08-29 17:30 | PC.NURSE ---
Dr. Orantes made aware of Pt BP of 80/56, Per Dr. Orantes is ok for Pt BP to be low due to her is always having low BP
[2024-08-29 18:01] LABS: Basophils % (Auto) 0 % (0-2.5); Eosinophils % (Auto) 0 % (0-10); Hematocrit 38.7 % (36.0-46.0); Hemoglobin 12.5 g/dL (12.0-16.0); Immature Granulocytes % (Auto) 0 % (0-0); Immature Granulocytes Auto 0.02 Thou/mm3 (0.00-0.00); Lymphocytes % (Auto) 17 % (10-50); Mean Corpuscular HGB Conc 32.3 g/dl (31.0-37.0); Mean Corpuscular Hemoglobin 30.2 pg (25.0-35.0); Mean Corpuscular Volume 94 fL (80-100); Monocytes # (Auto) 0.4 Thou/mm3 (0.0-0.8); Monocytes % (Auto) 6 % (0-12); Neutrophils # (Auto) 4.5 Thou/mm3 (1.8-7.7); Neutrophils % (Auto) 77 % (37-80); Nucleated Red Blood Cell % 0 /100 WBC (0); Platelet Count 202 Thou/mm3 (140-440); RDW Standard Deviation 43.8 fL (36.4-46.3); Red Blood Count 4.14 Miln/mm3 (4.00-5.20); White Blood Count 5.8 Thou/mm3 (3.6-11.0)
[2024-08-29 18:04] LABS: Base Excess, Venous -2 (-3-3); O2 Saturation, Venous 78 % (96-97); PCO2, Venous 45 mmHg (36-56); PO2, Venous 42 mmHg (15-58); pH, Venous 7.33 (7.33-7.66)
--- NOTE | 2024-08-29 18:19 | EDNOTE_ITS ---
Emergency Room Addendum <Kj Wright - Last Filed: 08/29/24 22:01> Addendum Narrative: 1800: Care assumed from Dr. Orantes, the previous shift emergency physician. Past medical, surgical, social and family history reviewed. Vitals and home medications reviewed. I will assume the care of the patient at this time, pending final disposition. Please refer to the emergency department record for previous note for complete H&P. 1820: The patient was seen yesterday in this ED and tested positive for Influenza A. She states that she experienced weakness and fell after walking through the parking lot twice. She denies hitting her head and reports no focal neurological complaints. She notes generalized body aches related to Influenza A but reports no injuries. She also denies head pain, neck pain, or shoulder pain. The patient mentions she is unhoused and is on Trazodone for depression, which she says causes daytime sleepiness. She last took Tylenol at 12:00 PM today. 183: CXR shows developing left perihilar and likely right lower lobe infiltrate as compared to yesterday's chest x-ray, according to my interpretation. Physical exam by me shows patient under no acute distress at this time. GENERAL APPEARANCE: alert and oriented x 4, well-developed, well-nourished, no acute distress, appears generally fatigue VITALS: All vitals were reviewed and the pulse ox is 97% on room air, which is normal according to my interpretation. HEENT: Normocephalic, atraumatic; pupils equal, round, reactive to light; EOMI; mucous membranes pink, moist; oropharynx clear. No scalp contusions. NECK: Supple LUNGS: CTABL; no wheezes, no rales, no rhonchi HEART: Regular rate, regular rhythm; normal S1, S2; no murmurs ABDOMEN: non distended; normal BS; soft, no tenderness, no guarding, no rebound; no masses, no organomegaly, no hernia BACK: no CVA tenderness, no cervical spine tenderness are noted. EXTREMITIES: atraumatic; no edema NEUROLOGIC: awake; alert and oriented x4; cranial nerves II-XII grossly intact; no focal sensory or motor deficits PSYCHIATRIC: appropriate mood and affect SKIN: warm, dry, normal color; no rashes Patient's EKG at 19:55, according to my interpretation, showed NSR at 73 bpm, normal axis, no ectopy. No signs of acute ischemia. 2149 Hospitalist made aware of the patient?s HPI, PMHx, lab and/or radiology results. Treatment plan was discussed. Accepts patient for admission. Critical Care Time Critical Care Time Critical Care Time: Yes Total Critical Care Time (min.): 45 Attestation: The high probability of sudden, clinically significant deterioration in the patient?s condition required the highest level of my preparedness to intervene urgently. ? The services I provided to this patient were to treat and/or prevent clinically significant deterioration. Services included the following: chart data review, reviewing nursing notes and/or old charts, documentation time, business risk consultant collaboration regarding findings and treatment options, medication orders and management, direct patient care, vital sign assessments and ordering, interpr eting and reviewing diagnostic studies and lab tests. ? Aggregate critical care time includes only time during which I was engaged in work directly related to the patient?s care, as described above, whether at bedside or elsewhere in the Emergency Department. It did not include time spent performing other reported procedures or the services of residents, students, nurses or physician assistants. Clinical impression: #Pneumonia #Generalized weakness #Near syncope #Pneumonia #Hypertension #Severe sepsis Disposition: Admit Disposition comment: Stable <Ellen Joyner - Last Filed: 08/29/24 23:12> Addendum Narrative: 1800: Care assumed from Dr. Orantes, the previous shift emergency physician. Past medical, surgical, social and family history reviewed. Vitals and home medications reviewed. I will assume the care of the patient at this time, pending final disposition. Please refer to the emergency department record for previous note for complete H&P. 1820: The patient was seen yesterday in this ED and tested positive for Influenza A. She states that she experienced weakness and fell after walking through the parking lot twice. She denies hitting her head and reports no focal neurological complaints. She notes generalized body aches related to Influenza A but reports no injuries. She also denies head pain, neck pain, or shoulder pain. The patient mentions she is unhoused and is on Trazodone for depression, which she says causes daytime sleepiness. She last took Tylenol at 12:00 PM today. 1834: CXR shows developing left perihilar and likely right lower lobe infiltrate as compared to yesterday's chest x-ray, according to my interpretation. Physical exam by me shows patient under no acute distress at this time. GENERAL APPEARANCE: alert and oriented x 4, well-developed, well-nourished, no acute distress, appears generally fatigue VITALS: All vitals were reviewed and the pulse ox is 97% on room air, which is normal according to my interpretation. HEENT: Normocephalic, atraumatic; pupils equal, round, reactive to light; EOMI; mucous membranes pink, moist; oropharynx clear. No scalp contusions. NECK: Supple LUNGS: CTABL; no wheezes, no rales, no rhonchi HEART: Regular rate, regular rhythm; normal S1, S2; no murmurs ABDOMEN: non distended; normal BS; soft, no tenderness, no guarding, no rebound; no masses, no organomegaly, no hernia BACK: no CVA tenderness, no cervical spine tenderness are noted. EXTREMITIES: atraumatic; no edema NEUROLOGIC: awake; alert and oriented x4; cranial nerves II-XII grossly intact; no focal sensory or motor deficits PSYCHIATRIC: appropriate mood and affect SKIN: warm, dry, normal color; no rashes Patient's EKG at 19:55, according to my interpretation, showed NSR at 73 bpm, normal axis, no ectopy. No signs of acute ischemia. 2149 Hospitalist made aware of the patient?s HPI, PMHx, lab and/or radiology results. Treatment plan was discussed. Accepts patient for admission. 2311: Dr. Sexton requests a CT head prior to accepting the patient for admission. Critical Care Time Critical Care Time Critical Care Time: Yes Total Critical Care Time (min.): 45 Attestation: The high probability of sudden, clinically significant deterioration in the patient?s condition required the highest level of my preparedness to intervene urgently. ? The services I provided to this patient were to treat and/or prevent clinically significant deterioration. Services included the following: chart data review, reviewing nursing notes and/or old charts, documentation time, business risk consultant collaboration regarding findings and treatment options, medication orders and management, direct patient care, vital sign assessments and ordering, interpreting and reviewing diagnostic studies and lab tests. ? Aggregate critical care time includes only time during which I was engaged in work directly related to the patient?s care, as described above, whether at bedside or elsewhere in the Emergency Department. It did not include time spent performing other reported procedures or the services of residents, students, nurses or physician assistants. Clinical impression: #Pneumonia #Generalized weakness #Near syncope #Pneumonia #Hypertension #Severe sepsis Disposition: Admit Disposition comment: Stable Attestation <Kj Wright - Last Filed: 08/29/24 22:01> Attestation Scribe Attestation: I, Yomi Wright, am scribing for and in the presence of Dr. Tabares. Provider Notation: Although this document has been carefully reviewed, there may still be some phonetic and other typographical errors. These errors are purely grammatical due to imperfections in the software program and should not be construed in any way to compromise the substance of the patient's medical care during this visit.
[2024-08-29 18:24] LABS: B-Type Natriuretic Peptide < 20 pg/mL (0-100)
[2024-08-29 18:34] LABS: HCG,Qualitative Serum Negative
[2024-08-29 18:35] LABS: Alanine Aminotransferase 12 U/L (10-49); Albumin, Serum 3.5 gm/dL (3.5-5.0); Albumin/Globulin Ratio 1.7 (1.2-2.2); Alcohol, Blood Medical < 3.0 mg/dL (0-10.0); Alkaline Phosphatase 62 U/L (46-116); Anion Gap 6 (7-16); Aspartate Amino Transferase 14 U/L (0-34); BUN/Creatinine Ratio 11 Ratio (12-20); Bilirubin,Total < 0.2 mg/dL (0.3-1.2); Blood Urea Nitrogen 8 mg/dL (9-23); C-Reactive Protein < 0.4 mg/dL (0.0-0.9); Calcium (Corrected) 8.4 mg/dL (8.5-10.1); Carbon Dioxide 25.6 mMol/L (20.0-31.0); Chloride 106 mMol/L (98-107); Creatinine (Component) 0.7 mg/dL (0.6-1.3); Estimated Creatinine Clearance 84.8 mL/min (>60); Globulin 2.1 gm/dL (2.3-3.5); Glucose 113 mg/dL (74-106); Magnesium 1.7 mg/dL (1.6-2.6); Osmolality,Calculated 274 (275-295); Potassium 3.6 mMol/L (3.4-5.1); Procalcitonin 0.05 ng/ml (0.0-0.49); Sodium 138 mMol/L (136-145); Thyroid Stimulating Hormone 5.84 uIU/mL (0.55-4.78); Total Protein 5.6 gm/dL (5.7-8.2); Troponin I < 0.020 ng/mL (0.0-0.045); eGFR > 60 See Note
[2024-08-29] MEDS: KETOROLAC INJ 30 MG/ML VIAL IVP (18:56)
[2024-08-29] MEDS: cefTRIAXone/D5w 1gm IV premix 50 ML IV (19:00)
[2024-08-29 19:04] LABS: Sed Rate (ESR) 5 mm/hr (0-20)
--- NOTE | 2024-08-29 19:43 | EKG_ITS ---
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
[2024-08-29 20:02] LABS: Collection Type, Urine Clean Catch; WBC,Urine 0 /hpf (0-5)
[2024-08-29 20:03] LABS: Free T4 (Free Thyroxine) 0.98 ng/dL (0.89-1.76)
[2024-08-29] MEDS: ACETAMINOPHEN IVPB 1,000 MG/100 ML VIAL 250 MG IV (20:04)
[2024-08-29] MEDS: AZITHROMYCIN INJ 500 MG in SODIUM CHLORIDE 0.9% 250 ML 250 ML 250 MG IV (20:09)
[2024-08-29 20:51] LABS: Bacteria,Urine Rare; Bilirubin,Urine Negative (Negative); Blood,Urine 3+ (Negative); Clarity,Urine Clear (Clear/Hazy); Color,Urine Colorless (Lt Yel-Yel); Culture Indicated,Urine Not Indicated; Glucose, Urine Negative (Negative); Ketones,Urine 2+ (Negative); Leukocyte Esterase,Urine Negative (Negative); Nitrite,Urine Negative (Negative); Protein,Urine Trace (Neg - Trace); RBC,Urine 1 /hpf (0-3); Specific Gravity,Urine 1.015 (1.001-1.035); Squamous Epithelial Cell,Urine 4 /hpf (0-5); Urobilinogen,Urine Negative mg/dL (0.0-1.0)
--- NOTE | 2024-08-29 21:49 | PC.NURSE ---
Pt up ambulated to BR without difficulies. pt hungry and requesting gramm crackers and peanut butter
--- NOTE | 2024-08-29 23:11 | XR_ITS ---
Examination: CT brain head without contrast. 2-D sagittal coronal reconstructions Date and time of exam:August 29, 2024 1150 hours INDICATIONS: Syncopal episode today CTDI: vol (mGy):7.43 DLP: (mGycm):880 Technique: Multiple CT axial sections of the brain have been obtained, 5 mm slice thickness. Contrast has not been administered. 2-D sagittal, coronal reconstructions have been obtained Low dose protocols were performed. One or more of the following dose reduction techniques were used; automated exposure control, adjustment of the mA and/or KV according to patient size, use of iterative reconstruction technique. Findings: No significant ventricular enlargement. Intra-axial or extra-axial hemorrhage density is not seen. No mass effect or midline shift Basal cisterns are not remarkable. Fourth ventricle is midline. Cranial vault intact. Impression: Negative for acute hemorrhage, mass effect or midline shift
[2024-08-30] VITALS (7 sets, daily range): BP systolic 92–112; BP diastolic 61–76; PULSE 62–84; RESP 16–98; TEMP 36.1–37.2; O2SAT 92–99; BMI 24.7
--- NOTE | 2024-08-30 02:28 | ECHO_ITS ---
Transthoracic Echo Report Ht (in): 63 Wt (lb): 135 Exam Location: Echo Lab Status: Emergency Principal Scientist: Radha Calvillo Indications: Procedure Performed: BP: 95 / 67 HR: 64 Technical Quality: Technically difficult study MEASUREMENTS (Male / Female) Normal Values 2D ECHO LV Diastolic Diameter PLAX 4.3 cm 4.2 - 5.9 / 3.9 - 5.3 cm LV Systolic Diameter PLAX 2.8 cm IVS Diastolic Thickness 0.5 cm 0.6 - 1.0 / 0.6 - 0.9 cm LVPW Diastolic Thickness 0.6 cm 0.6 - 1.0 / 0.6 - 0.9 cm LV Relative Wall Thickness 0.3 LVOT Diameter 1.5 cm LA Volume Index 17.3 cm?/m? 16 - 28 cm?/m? M-MODE Aortic Root Diameter MM 1.9 cm LA Systolic Diameter MM 2.5 cm LA Ao Ratio MM 1.3 AV Cusp Separation MM 1.4 cm DOPPLER AV Peak Velocity 110.0 cm/s AV Peak Gradient 4.8 mmHg AV Mean Gradient 2.0 mmHg AV Velocity Time Integral 23.9 cm LVOT Peak Velocity 96.8 cm/s LVOT Peak Gradient 3.7 mmHg LVOT Velocity Time Integral 21.1 cm LVOT Cardiac Index 1438.7 cm?/min?m? AV Area Cont Eq vti 1.6 cm? AV Area Cont Eq pk 1.6 cm? MV Area PHT 5.5 cm? Mitral E Point Velocity 105.0 cm/s Mitral A Point Velocity 68.9 cm/s Mitral E to A Ratio 1.5 LV E' Lateral Velocity 16.1 cm/s Mitral E to LV E' Lateral Ratio 6.5 LV E' Septal Velocity 12.6 cm/s Mitral E to LV E' Septal Ratio 8.3 TR Peak Velocity 187.0 cm/s TR Peak Gradient 14.0 mmHg PV Peak Velocity 102.0 cm/s PV Peak Gradient 4.2 mmHg FINDINGS Left Ventricle Normal left ventricular size, wall thickness, systolic function with no obvious regional wall motion abnormalities. Normal left ventricular diastolic filling pattern for age. The ejection fraction is visually estimated at 65 %. Right Ventricle The right ventricle is normal in size and systolic function. Left Atrium The left atrium is normal by two-dimensional, color flow and Doppler imaging with no structural abnormalities, no thrombus formation present. Right Atrium The right atrium is normal by two-dimensional imaging, color flow and Doppler imaging with no structural abnormalities, no thrombus formation present. Atrial Septum The interatrial septum appears normal with no evidence of a shunt. Aorta The aorta is normal by two-dimensional, color flow and Doppler interrogation. Mitral Valve The mitral valve is normal by two-dimensional, color flow and Doppler interrogation. There is no significant mitral valve regurgitation, stenosis or prolapse. Aortic Valve The aortic valve is trileaflet and normal by two-dimensional, color flow and Doppler interrogation. There is no significant aortic valve regurgitation. Tricuspid Valve The tricuspid valve is normal by two-dimensional, color flow and Doppler interrogation. There is mild tricuspid valve regurgitation. Pulmonic Valve The pulmonic valve is not well visualized. There is no significant pulmonic valve regurgitation. Vessels The pulmonary artery appears normal. The inferior vena cava pulmonary and hepatic veins appear normal. Pericardium The pericardium is normal by two-dimensional imaging. There is no significant pericardial effusion. CONCLUSIONS indication: syncope Normal LV size and wall thickness. Estimated 65 EF %. RV is normal in size and systolic function. Mild TR. Marion Blankenship (Electronically Signed) Final Date: 31 August 2024 00:41
--- NOTE | 2024-08-30 02:55 | PC.NURSE ---
Pt asleep. arouses easily
--- NOTE | 2024-08-30 04:03 | PD.RESHP ---
Documentation for date of: 08/30/24 HPI History of Present Illness Chief complaint: Syncopal episode History of present illness: Patient is a 44-year-old female with past medical history significant for depression and homelessness who presented to the ED after having an episode of fainting. Patient states that she took trazodone because patient was feeling depressed, immediately after felt dizzy and off balance, leading her to hit her head and losing consciousness. Patient was picked up by EMS after seeing her outside the parking lot. Patient does not remember how long she was down for. Of note, patient came to the ED yesterday after feeling weak for the last 4 days, and was found to be positive for influenza. Patient also noted to have associated cough that started today, along with fever/chills and nausea. Patient denies any productive phlegm, sore throat. Past medical history: As mentioned above, patient has been homeless since May 26, 2024. Patient states that she has tried staying at shelters but they are currently full. Past surgical history: Tubal ligation in 2005 Social history: Patient smokes about 5 cigarettes a day for the last 10 years, and last meth use was 5 days ago, prior use was a month ago. Denies any alcohol use. Allergies: NKDA Family history: Noncontributory Meds: Trazodone, unsure of dose, and patient took Tylenol today ED course: Patient presented with a low blood pressure of 82/55 otherwise hemodynamically stable. Patient given a total of 3L of NS. Labs significant for low calcium and elevated TSH but normal T4. Bedside influenza A positive. U tox negative for ethyl alcohol. UA positive for 2+ ketones and 2+ blood. Patient be admitted for further management of syncope. Review of Systems Review of Systems Systems Reviewed: All systems reviewed, normal except as documented Exam Vital Signs Temp Pulse Resp BP Pulse Ox O2 Del Method 97.6 F 77 16 92/70 98 Room Air 08/29/24 19:46 08/30/24 03:32 08/30/24 03:32 08/29/24 23:31 08/29/24 23:31 08/29/24 23:31 Narrative Exam General Appearance: Pt in moderate acute distress laying in bed. HEENT: NC/AT, no scleral icterus, no conjunctival pallor, dry mucous membranes Lungs: CTAB, no wheezes or crackles appreciated CVS: RRR, S1/S2 heard, no murmurs or rubs appreciated ABD: Soft, non-tender, non-distended, BS + in all 4 quadrants EXT: no deformity/edema/lesions/cyanosis/clubbing, radial pulses 2+ BL, DP pulses 2 + BL SKIN: Skin exam normal without any rashes. Warm to touch. Neuro: A&O x 3. No gross neurological deficits. Motor and sensory grossly intact in B/L UL and LL. Psych: Appropriate mood and affect Results: Labs 08/30/24 04:30 08/30/24 04:30 Labs: Short CBC 08/29/24 Range/Units 17:17 WBC 5.8 (3.6-11.0) Thou/mm3 Hgb 12.5 (12.0-16.0) g/dL Hct 38.7 (36.0-46.0) % Plt Count 202 (140-440) Thou/mm3 BMP 08/29/24 17:17 Sodium 138 Potassium 3.6 Chloride 106 Carbon Dioxide 25.6 BUN 8 L Creatinine 0.7 Glucose 113 H Calcium 8.0 L Cardiac Enzymes 08/29/24 Range/Units 17:17 Troponin I < 0.020 (0.0-0.045) ng/mL Liver Function 08/29/24 Range/Units 17:17 Total Bilirubin < 0.2 L (0.3-1.2) mg/dL AST 14 (0-34) U/L ALT 12 (10-49) U/L Alkaline Phosphatase 62 (46-116) U/L Albumin 3.5 (3.5-5.0) gm/dL Urine 08/29/24 Range/Units 19:48 Urine Color Colorless A (Lt Yel-Yel) Urine Clarity Clear (Clear/Hazy) Urine pH 6.0 (5.0-7.0) Ur Specific [place] 1.015 (1.001-1.035) Urine Protein Trace (Neg - Trace) Urine Glucose (UA) Negative (Negative) ABG Interpretation ABG results: 08/29/24 17:17 VBG pH 7.33 VBG pCO2 45 VBG pO2 42 VBG Base Excess -2 Quality Measures Quality Measures none Medications Home Medications and Allergies Allergies Allergy/AdvReac Type Severity Reaction Status Date / Time No Known Allergies Allergy Verified 07/18/24 18:16 Visit Medications Acetaminophen (Acetaminophen 325 Mg Tablet) 650 mg PO Q6H PRN PRN Reason: Fever >100.3 or Pain 1-3 Stop: 09/29/24 02:24 Heparin Sodium (Porcine) (Heparin Sod Inj 5000 Unit/Ml Vial) 5,000 unit SC Q12HR [facility] Stop: 09/13/24 08:59 Metoclopramide HCl (Metoclopramide 5 Mg Tablet) 10 mg PO Q6H PRN PRN Reason: NAUSEA OR VOMITING Stop: 09/29/24 02:24 Oseltamivir Phosphate (Oseltamivir 6 Mg/Ml) 75 mg PO QDAY [facility] Stop: 09/03/24 08:59 Discontinued Medications Sodium Chloride (Ns) 1,000 mls @ 999 mls/hr IV .Q1H1M ONE Stop: 08/29/24 17:18 Last Infusion: 08/29/24 17:32 Dose: Infused Acetaminophen (Ofirmev Inj) 1,000 mg in 100 mls @ 250 mls/hr IV NOW ONE Stop: 08/29/24 18:51 Last Infusion: 08/29/24 20:45 Dose: Infused Sodium Chloride (Ns) 1,000 mls @ 999 mls/hr IV .Q1H1M ONE Stop: 08/29/24 19:28 Last Infusion: 08/29/24 19:59 Dose: Infused Sodium Chloride (Ns) 1,000 mls @ 999 mls/hr IV .Q1H1M ONE Stop: 08/29/24 19:28 Last Infusion: 08/29/24 19:59 Dose: Infused Ceftriaxone Sodium/Dextrose (Rocephin/D5w 1gm Iv Premix) 50 mls @ 100 mls/hr IV X1 ONE Stop: 08/29/24 19:03 Last Infusion: 08/29/24 19:10 Dose: Infused Azithromycin 500 mg/ Sodium (Chloride) 250 mls @ 250 mls/hr IV X1 ONE Stop: 08/29/24 19:33 Last Admin: 08/29/24 20:09 Dose: 250 mls/hr Ketorolac Tromethamine (Ketorolac Inj 30 Mg/Ml Vial) 30 mg IVP X1 ONE Stop: 08/29/24 18:29 Last Admin: 08/29/24 18:56 Dose: 30 mg Oseltamivir Phosphate (Oseltamivir 75 Mg Capsule) 75 mg PO X1 ONE Stop: 08/29/24 16:30 Last Admin: 08/29/24 16:35 Dose: 75 mg Assessment & Plan Plan Patient is a 44-year-old female with past medical history significant for depression and homelessness who presented to the ED after having an episode of fainting and admitted for further management of syncope. #Syncope Patient stated that she fainted after taking trazodone after feeling depressed. Patient states that she hits her head, and denies how long she was passed out for. Head CT imaging negative for acute bleeds. Patient most likely will have workup to determine cause of syncope either vasovagal, cardiac or neurogenic in nature. Patient also presented with hypotension in the ED and given 3L of NS. Patient also given IV ceftriaxone azithromycin x 1 however on chest x-ray, despite bilateral mild pneumonia read, no significant infiltrates or consolidation noted. Last EKG showed sinus rhythm. -Admit to telemetry -Follow-up routine EKG, echocardiogram, orthostatic vitals -Ordered Tylenol for mild pain #Influenza A positive #Cough Patient tested positive for influenza A at bedside yesterday. Chest x-ray not significant for any infiltrates or consolidation bilaterally. -Patient already received x 1 of Tamiflu in the ED -Will order Tamiflu 75 mg twice daily for total of 5 days -Will continue azithromycin for 3 more days due to patient's current symptoms -Will also order benzonatate Perles for cough #Depression Patient takes home trazodone currently. -Will hold home med as patient may have had a syncopal episode due to acute drop in blood pressure and symptoms of dizziness and fainting shortly after. #Subclinical hypothyroidism Patient presented with a TSH of 5.84 and a free T4 within normal limits. -Continue to monitor, and consider outpatient follow-up PCP #Polysubstance use #Homelessness Patient uses 5 cigarettes a day for the last 10+ years and last meth use was 4 to 5 days. -Consider nicotine patch if patient requests -Will evp general counsel patient on polysubstance use and discuss risks and harms -Refer to socially responsible investment adviser for resources Health Maintenance: DVT prophylaxis: Heparin subcu Diet: Carb consistent Cole: No Lines: PIV Supplemental O2: As needed CODE STATUS: Full code Disposition: Patient admitted to tele for further management of syncope workup. Patient's plan and care discussed with my attending, Dr. Azul Treadwell MD PGY-2 Attending Provider Attestation/Addendum I attest that I was physically present for the evaluation, physical examination, lab and imaging review of the patient with the residents. I discussed the case with the residents and agree with the findings and plans of care as documented above. Patient is a 44 years old female with past medical history of depression and homelessness who presented to the ED after having an episode of loss of consciousness. Patient stated that she took trazodone after she felt depressed following which she started feeling dizzy, lost her balance and had a fall. She stated that she hit her head and also lost consciousness. She was unsure about the duration of her loss of consciousness. Patient also noted that she has been having cough, fever, chills and nausea starting today. Patient also has a history of smoking and meth abuse. In the ED, her blood pressure was soft at 82/55. Patient received total of 3 L normal saline in the ED. She was also found to have influenza A positivity. We will admit patient for syncope workup including echocardiogram orthostatic vitals. Started on Tamiflu for influenza. Also added azithromycin for possible superimposed bacterial pneumonia. Mckenzie Liang MD
[2024-08-30 04:50] LABS: Basophils % (Auto) 0 % (0-2.5); Eosinophils % (Auto) 1 % (0-10); Hematocrit 36.9 % (36.0-46.0); Immature Granulocytes % (Auto) 0 % (0-0); Immature Granulocytes Auto 0.01 Thou/mm3 (0.00-0.00); Lymphocytes # (Auto) 1.9 Thou/mm3 (1.0-4.8); Lymphocytes % (Auto) 61 % (10-50); Mean Corpuscular HGB Conc 32.5 g/dl (31.0-37.0); Mean Corpuscular Hemoglobin 30.1 pg (25.0-35.0); Mean Corpuscular Volume 93 fL (80-100); Monocytes # (Auto) 0.3 Thou/mm3 (0.0-0.8); Monocytes % (Auto) 8 % (0-12); Neutrophils # (Auto) 0.9 Thou/mm3 (1.8-7.7); Neutrophils % (Auto) 30 % (37-80); Nucleated Red Blood Cell % 0 /100 WBC (0); Platelet Count 230 Thou/mm3 (140-440); RDW Standard Deviation 44.4 fL (36.4-46.3); Red Blood Count 3.99 Miln/mm3 (4.00-5.20); White Blood Count 3.1 Thou/mm3 (3.6-11.0)
--- NOTE | 2024-08-30 04:59 | PC.NURSE ---
report called to floor RN
[2024-08-30 05:10] LABS: Albumin, Serum 3.1 gm/dL (3.5-5.0); Albumin/Globulin Ratio 1.6 (1.2-2.2); Alkaline Phosphatase 55 U/L (46-116); Anion Gap 5 (7-16); Aspartate Amino Transferase 12 U/L (0-34); BUN/Creatinine Ratio 10 Ratio (12-20); Bilirubin,Total < 0.2 mg/dL (0.3-1.2); Blood Urea Nitrogen 5 mg/dL (9-23); Calcium 7.6 mg/dL (8.3-10.6); Calcium (Corrected) 8.3 mg/dL (8.5-10.1); Carbon Dioxide 24.2 mMol/L (20.0-31.0); Chloride 113 mMol/L (98-107); Creatinine (Component) 0.5 mg/dL (0.6-1.3); Estimated Creatinine Clearance 118.8 mL/min (>60); Glucose 83 mg/dL (74-106); Magnesium 1.8 mg/dL (1.6-2.6); Osmolality,Calculated 279 (275-295); Potassium 3.9 mMol/L (3.4-5.1); Sodium 142 mMol/L (136-145); Total Protein 5.1 gm/dL (5.7-8.2); eGFR > 60 See Note
[2024-08-30 05:17] LABS: Alanine Aminotransferase 9 U/L (10-49)
[2024-08-30] MEDS: OSELTAMIVIR 75 MG CAPSULE PO ×2 (08:55→21:10)
[2024-08-30] MEDS: HEPARIN SOD INJ 5000 UNIT/ML VIAL SC (08:55)
[2024-08-30] MEDS: CALCIUM CARBONATE 600 MG TABLET PO (12:48)
--- NOTE | 2024-08-30 12:49 | PC.NURSE ---
0800 OBSERVED AMBULATING TO AND FROM THE BATHROOM. GAIT STEADY. PATIENT DENIES DIZZINESS OR LIGHTHEADEDNESS
--- NOTE | 2024-08-30 13:56 | ESPR_ITS ---
Documentation for date of: 08/30/24 Subjective Subjective Interval history: Patient seen and examined at bedside. No acute problems overnight. Patient is feeling tired with some body aches. Tolerating PO intake. No other acute complaints. Blood pressure improved. Saturating on room air. Exam Vital Signs Temp Pulse Resp BP Pulse Ox O2 Del Method 97.3 F 64 18 98/69 93 L Room Air 08/30/24 11:59 08/30/24 11:59 08/30/24 11:59 08/30/24 11:59 08/30/24 11:59 08/30/24 11:59 Narrative Exam Constitutional: NAD. HEENT: NCAT. Vision grossly intact. Respiratory: CTAB bilaterally. Cardiac: RRR. Abdomen: Soft, non-distended, non-tender. MSK: No B/L LE edema. Skin: Warm, dry, intact. No obvious lesions. Neuro: Motor and sensation grossly intact. Psychiatric: Flat affect. Objective Labs 08/31/24 04:40 08/31/24 04:40 Labs: Laboratory Results - last 24 hr 08/29/24 08/29/24 08/30/24 17:17 19:48 04:30 WBC 5.8 3.1 L D RBC 4.14 3.99 L Hgb 12.5 12.0 Hct 38.7 36.9 MCV 94 93 MCH 30.2 30.1 MCHC 32.3 32.5 RDW Std Deviation 43.8 44.4 Plt Count 202 230 Neut % (Auto) 77 30 L Lymph % (Auto) 17 61 H Atkinson % (Auto) 6 8 Eos % (Auto) 0 1 Baso % (Auto) 0 0 Neut # (Auto) 4.5 0.9 L Lymph # (Auto) 1.0 1.9 Atkinson # (Auto) 0.4 0.3 Eos # (Auto) 0.0 0.0 Baso # (Auto) 0.0 0.0 Immature Gran # (Auto) 0.02 H 0.01 H Absolute Nucleated RBC 0.00 0.00 Immature Gran % 0 0 Nucleated RBC % 0 0 ESR 5 D-Dimer Cancelled VBG pH 7.33 VBG pCO2 45 VBG pO2 42 VBG O2 Sat (Seda) 78 L VBG Base Excess -2 Sodium 138 142 Potassium 3.6 3.9 Chloride 106 113 H Carbon Dioxide 25.6 24.2 Anion Gap 6 L 5 L BUN 8 L 5 L Creatinine 0.7 0.5 L Estim Creat Clear Calc 84.8 118.8 eGFR > 60 > 60 BUN/Creatinine Ratio 11 L 10 L Glucose 113 H 83 Calculated Osmolality 274 L 279 Lactic Acid 1.0 Calcium 8.0 L 7.6 L Corrected Calcium 8.4 L 8.3 L Magnesium 1.7 1.8 Total Bilirubin < 0.2 L < 0.2 L AST 14 12 ALT 12 9 L Alkaline Phosphatase 62 55 Troponin I < 0.020 C-Reactive Prot, Quant < 0.4 B-Natriuretic Peptide < 20 Total Protein 5.6 L 5.1 L Albumin 3.5 3.1 L Globulin 2.1 L 2.0 L Albumin/Globulin Ratio 1.7 1.6 Procalcitonin 0.05 TSH 5.84 H Free T4 0.98 HCG, Qual Negative Ur Collection Type Clean Catch Urine Color Colorless A Urine Clarity Clear Urine pH 6.0 Ur Specific [place] 1.015 Urine Protein Trace Urine Glucose (UA) Negative Urine Ketones 2+ A Urine Blood 3+ A Urine Nitrite Negative Urine Bilirubin Negative Urine Urobilinogen (Auto) Negative Ur Leukocyte Esterase Negative Urine RBC 1 Urine WBC 0 Ur Squamous Epith Cells 4 Urine Bacteria Rare Ur Culture Indicated? Not Indicated Ethyl Alcohol < 3.0 ABG Interpretation ABG results: 08/29/24 17:17 VBG pH 7.33 VBG pCO2 45 VBG pO2 42 VBG Base Excess -2 Quality Measures Quality Measures none Assessment & Plan Assessment Current Active Medications: Generic Name Dose Route Start Last Admin Trade Name Freq PRN Reason Stop Dose Admin Acetaminophen 650 mg 08/30/24 02:25 Acetaminophen 325 Mg Tablet PO 09/29/24 02:24 Q6H PRN Fever >100.3 or Pain 1-3 Azithromycin 250 mg 08/30/24 21:00 Azithromycin 250 Mg Tablet PO 09/06/24 20:59 DAILY@2100 [facility] Benzonatate 100 mg 08/30/24 05:49 Benzonatate 100 Mg Capsule PO 09/29/24 05:48 Q8HR PRN COUGH Protocol Calcium Carbonate 600 mg 08/30/24 09:45 08/30/24 12:48 Calcium Carbonate 600 Mg Tablet PO 09/29/24 09:44 600 mg QDAY [facility] Administration Heparin Sodium (Porcine) 5,000 unit 08/30/24 09:00 08/30/24 08:55 Heparin Sod Inj 5000 Unit/Ml Vial SC 09/13/24 08:59 5,000 unit Q12HR MENDY Administration Metoclopramide HCl 10 mg 08/30/24 02:25 Metoclopramide 5 Mg Tablet PO 09/29/24 02:24 Q6H PRN NAUSEA OR VOMITING Oseltamivir Phosphate 75 mg 08/30/24 09:00 08/30/24 08:55 Oseltamivir 75 Mg Capsule PO 09/03/24 21:01 75 mg BID MENDY Administration Plan Patient is a 44-year-old female with past medical history significant for depression and homelessness who presented to the ED after having an episode of fainting and admitted for further management of syncope. #Syncope #Hypotension, resolved Neurogenic vs vasovagal vs cardiac. Patient stated that she fainted after taking trazodone after feeling depressed. Patient states that she hits her head, and denies how long she was passed out for. Patient also presented with hypotension in the ED and given 3L of NS. UA also shows hematuria and ketonuria, suspect dehydration. Patient also given IV ceftriaxone azithromycin x 1 however on chest x-ray, despite bilateral mild pneumonia read, no significant infiltrates or consolidation noted. Last EKG showed sinus rhythm. - Follow up echo - Follow up orthostatic vitals #Influenza A positive Patient tested positive for influenza A at bedside yesterday. Chest x-ray not significant for any infiltrates or consolidation bilaterally. - Tamiflu 08/30-09/04 - Will continue azithromycin for 3 more days due to patient's current symptoms - Will also order benzonatate Perles for cough #Hypocalcemia, improving - Calcium carbonate #Depression Patient takes home trazodone currently. -Will hold home med as patient may have had a syncopal episode due to acute drop in blood pressure and symptoms of dizziness and fainting shortly after. #Subclinical hypothyroidism Patient presented with a TSH of 5.84 and a free T4 within normal limits. - Continue to monitor, and consider outpatient follow-up PCP #Polysubstance use #Homelessness Patient uses 5 cigarettes a day for the last 10+ years and last meth use was 4 to 5 days. - Consider nicotine patch if patient requests - Refer to sr. social media & mobile manager for resources Health Maintenance: DVT prophylaxis: Heparin subcu Diet: Carb consistent Cole: No Lines: PIV Supplemental O2: As needed CODE STATUS: Full code Disposition: Patient admitted to [facility] for further management of syncope workup. I have reviewed and discussed the patient's care with my attending, Dr. Srinivas Helton MD PGY-3 Attending Provider Attestation/Addendum I have examined the patient, reviewed labs and imaging findings, discussed the case with the resident(s), and reviewed entered orders. I agree with the plan of care as outlined in this note, with these additional summaries/recommendations: Patient is somnolent today but doing well. She still has some weakness in her lower extremities. Currently on both IV antibiotics and Tamiflu. Anticipate discharge in next 24-48 hours if she continues to improve. For now continue diet and physical therapy as needed. Akin Espino MD
[2024-08-30] MEDS: AZITHROMYCIN 250 MG TABLET PO (21:10)
[2024-08-31] VITALS: BP 103/70; PULSE 63; RESP 16; TEMP 36.3; O2SAT 96
[2024-08-31 04:00] VITALS: BP 113/82; PULSE 85; RESP 16; TEMP 36.6; O2SAT 98
[2024-08-31 06:06] LABS: Basophils % (Auto) 1 % (0-2.5); Eosinophils % (Auto) 1 % (0-10); Hematocrit 39.5 % (36.0-46.0); Hemoglobin 12.8 g/dL (12.0-16.0); Immature Granulocytes % (Auto) 0 % (0-0); Immature Granulocytes Auto 0.01 Thou/mm3 (0.00-0.00); Lymphocytes # (Auto) 2.4 Thou/mm3 (1.0-4.8); Lymphocytes % (Auto) 75 % (10-50); Mean Corpuscular HGB Conc 32.4 g/dl (31.0-37.0); Mean Corpuscular Hemoglobin 30.2 pg (25.0-35.0); Mean Corpuscular Volume 93 fL (80-100); Monocytes # (Auto) 0.2 Thou/mm3 (0.0-0.8); Monocytes % (Auto) 7 % (0-12); Neutrophils # (Auto) 0.5 Thou/mm3 (1.8-7.7); Neutrophils % (Auto) 17 % (37-80); Nucleated Red Blood Cell % 0 /100 WBC (0); Platelet Count 247 Thou/mm3 (140-440); Red Blood Count 4.24 Miln/mm3 (4.00-5.20); White Blood Count 3.2 Thou/mm3 (3.6-11.0)
[2024-08-31 06:53] LABS: Alanine Aminotransferase 7 U/L (10-49); Albumin, Serum 3.4 gm/dL (3.5-5.0); Albumin/Globulin Ratio 1.5 (1.2-2.2); Alkaline Phosphatase 52 U/L (46-116); Anion Gap 8 (7-16); Aspartate Amino Transferase 12 U/L (0-34); BUN/Creatinine Ratio 8 Ratio (12-20); Bilirubin,Total 0.2 mg/dL (0.3-1.2); Blood Urea Nitrogen < 5 mg/dL (9-23); Calcium 8.4 mg/dL (8.3-10.6); Calcium (Corrected) 8.9 mg/dL (8.5-10.1); Carbon Dioxide 26.2 mMol/L (20.0-31.0); Chloride 108 mMol/L (98-107); Creatinine (Component) 0.6 mg/dL (0.6-1.3); Estimated Creatinine Clearance 107.4 mL/min (>60); Globulin 2.2 gm/dL (2.3-3.5); Glucose 81 mg/dL (74-106); Osmolality,Calculated 279 (275-295); Potassium 3.9 mMol/L (3.4-5.1); Sodium 142 mMol/L (136-145); Total Protein 5.6 gm/dL (5.7-8.2); eGFR > 60 See Note
[2024-08-31 07:33] VITALS: PULSE 65; RESP 18; RESP 98
[2024-08-31 08:00] VITALS: BP 106/72; BP 109/72; BP 110/72; BP 111/83; PULSE 72; PULSE 75; PULSE 77; PULSE 83; RESP 17; TEMP 36.4; O2SAT 97
[2024-08-31] MEDS: CALCIUM CARBONATE 600 MG TABLET PO (08:04)
[2024-08-31] MEDS: OSELTAMIVIR 75 MG CAPSULE PO (08:05)
[2024-08-31 12:00] VITALS: BP 113/75; PULSE 72; RESP 15; TEMP 36.7; O2SAT 97
--- NOTE | 2024-08-31 12:41 | PC.SS ---
SS met with pt to discuss DC planning. Pt is homeless and does not wish to seek senior care. SS provided pt with a bag, clothing, and womanly products for DC. SS informed pt when she is ready for DC if she needs transport to let us know and a UBER will be ordered on her behalf. Kenton TREVIÑO made aware
--- NOTE | 2024-08-31 15:14 | PD.HHDS ---
Planned Discharge Date 08/31/24 DS: Providers Provider Date of admission: 08/31/24 10:01 Primary care physician: Physician No Primary/Family Admitting Provider: Mckenzie Liang MD Attending Provider on Admission: Mckenzie Liang MD Consults: 08/30/24 05:39 [facility] Referral - Nutrition Routine Comment: Positive screening for nutrition needs. [facility] Referral - Safety Routine Comment: Positive screening for safety needs. [facility] Referral - Transportation Routine Comment: Positive screening for transportation needs. 08/31/24 11:13 Referral Physical Therapy Routine Comment: Physician Instructions: Attending Provider on DC: Akin Espino MD Discharging Provider: Akin Espino MD Diagnosis Problem List Completed Was Problem List Reviewed/Reconciled?: Yes Hospital Course - Hospitalist Hospital Course Hospital course: 44-year-old female past medical history of depression and homelessness presents to the ED with chief complaint of dizziness with syncopal episode. Patient was picked up by EMS after seeing her outside the parking lot. Patient does not remember how long she was down for. Of note, patient came to the ED day prior to admission after feeling weak for the last 4 days, and was found to be positive for influenza. Patient also noted to have associated cough that started day of admission, along with fever/chills and nausea. Patient denies any productive phlegm, sore throat. Patient presented with a low blood pressure of 82/55 otherwise hemodynamically stable. Patient given a total of 3L of NS. Bedside influenza A positive. Was admitted for syncopal workup and had echo done which was normal and normal orthostatic vitals after receiving 3 L of IV fluids in the ER. Patient given 2 days worth of Tamiflu and Rocephin and azithromycin for possible superimposed bacterial pneumonia. During hospital stay, patient showing significant improvements in her mental status and overall energy level. She is now cleared for discharge and will be sent home on additional 3 days of Tamiflu, azithromycin and Augmentin. Advise follow-up with primary care within 1 to 2 days and to return to ED if new symptoms occur or weakness has not resolved. Akin Espino MD Status at Discharge Functional status at discharge: independent ambulation Overall status at discharge: patient is progressing back to baseline Time Spent with Patient Time attestation: Total time spent providing and/or coordinating discharge services: 45 Discharge Results Labs Diagrams: 08/31/24 04:40 08/31/24 04:40 Labs: Short CBC 08/31/24 Range/Units 04:40 WBC 3.2 L (3.6-11.0) Thou/mm3 Hgb 12.8 (12.0-16.0) g/dL Hct 39.5 (36.0-46.0) % Plt Count 247 (140-440) Thou/mm3 BMP 08/31/24 04:40 Sodium 142 Potassium 3.9 Chloride 108 H Carbon Dioxide 26.2 BUN < 5 L Creatinine 0.6 Glucose 81 Calcium 8.4 Liver Function 08/31/24 Range/Units 04:40 Total Bilirubin 0.2 L (0.3-1.2) mg/dL AST 12 (0-34) U/L ALT 7 L (10-49) U/L Alkaline Phosphatase 52 (46-116) U/L Albumin 3.4 L (3.5-5.0) gm/dL Exam Vital Signs Temp Pulse Resp BP Pulse Ox O2 Del Method 98.1 F 72 15 113/75 97 Room Air 08/31/24 12:00 08/31/24 12:00 08/31/24 12:00 08/31/24 12:00 08/31/24 12:00 08/31/24 12:00 Discharge Plan Plan Patient Disposition: HOME (Self Care) Patient condition on transfer: Stable Prescriptions/Referrals Prescriptions/Med Rec: New amoxicillin-pot clavulanate 875-125 mg tablet 1 tab PO BID 3 Days Qty: 6 0RF oseltamivir [Tamiflu] 75 mg capsule 75 mg PO BID 3 Days Qty: 6 0RF azithromycin 250 mg tablet 250 mg PO QDAY 3 Days Qty: 3 0RF Continued pantoprazole [Protonix] 40 mg Tablet,Delayed Release (Dr/Ec) 40 mg PO QDAY Qty: 90 0RF ibuprofen 800 mg tablet 800 mg PO TID PRN (Reason: pain) Qty: 30 0RF acetaminophen 325 mg capsule 650 mg PO QID PRN (Reason: fever or pain) 7 Days Qty: 30 0RF No Action pantoprazole [Protonix] 40 mg tablet,delayed release (DR/EC) 40 mg PO QDAY Qty: 30 0RF Referrals: No Primary/Family,Physician [Primary Care Provider] - Patient/Caregiver Discharge Instructions Other Discharge Activity Instructions:: Continue oseltamivir twice daily for 3 more days Continue Augmentin twice daily for 3 more days Continue azithromycin 250mg once daily for 3 more days Follow up with primary care provider within 1 week Print Language: Chinese Stand Alone Forms: Ira Award Info., Patient Portal Info Letter Discharge Order Discharge Orders: Discharge (Routine); Ordered 08/31/24 Ordered By: Akin Espino Quality Discharge Quality Measures VTE prophylaxis
== END 2024-08-31 15:18 | disposition home or self-care (01) | DRG 57 ==
LOC: SERX 18:13 → S3NX 08-31 13:26 → S3SX 09-01 06:54 → SERHOLD 09-01 06:54 → S3NX 09-01 06:55
PROVIDERS: Emergency Medicine; Student in an Organized Health Care Education/Training Program; Admitting Provider Student in an Organized Health Care Education/Training Program; Emergency Provider Emergency Medicine; Visit Provider Student in an Organized Health Care Education/Training Program
DX: S06.9X9A Unspecified intracranial injury with loss of consciousness of unspecified duration, initial encounter (principal); I95.9 Hypotension, unspecified; J10.08 Influenza due to other identified influenza virus with other specified pneumonia; J15.9 Unspecified bacterial pneumonia; R31.9 Hematuria, unspecified; F32.A Depression, unspecified; E83.51 Hypocalcemia; F15.10 Other stimulant abuse, uncomplicated; E03.8 Other specified hypothyroidism; Z59.02 Unsheltered homelessness; F17.210 Nicotine dependence, cigarettes, uncomplicated; W19.XXXA Unspecified fall, initial encounter; Y93.01 Activity, walking, marching and hiking; Y92.481 Parking lot as the place of occurrence of the external cause
CPT/HCPCS: 36415; 70450; 71045; 80053; 80307; 80320; 81001; 81025; 82803; 83605; 83735; 83880; 84145; 84439; 84443; 84484; 84703; 85025; 85379; 85652; 86140; 87040; 93005; 93225; 93306; 94762; 96361; 96365; 96366; 96375; 99291; G0378; J0131; J0456; J0696; J1643; J1885; J7030; J7050; A9270; G0480

== ENCOUNTER 2024-10-24 17:51 | Emergency (ER) | payer MEDICAID, SELFPAY ==
[2024-10-24 18:38] VITALS: BP 126/76; PULSE 100; RESP 18; TEMP 36.9; O2SAT 95; BMI 24.6
[2024-10-24] MEDS: DIPHTH,PERTUSS(ACELL),TET VAC 0.5 ML SYR- ADULT IMi (19:27)
[2024-10-24] MEDS: TRIMETHOPRIM/SULFA 160/800 DS TABLET 1 TAB PO (19:27)
--- NOTE | 2024-10-25 02:16 | PD.EDSKIN ---
ED Skin Abcess FB-RME/HPI General Chief complaint: Hand/Wrist Problems Stated complaint: RIGHT KNUCKLE INFECTION/PAIN/SWELLING X YESTERDAY Time Seen by Provider: 10/24/24 18:49 Arrival date/time: 10/24/24 17:51 44F with history of drug use and homelessness presents to ED with R index finger lac/pain and R knuckle swelling for 2 days when she accidentally cut herself. Patient has not had a tetanus shot in the past 5 years. Limitations: no limitations Related Data Previous Rx's ?Medication ?Instructions ?Recorded pantoprazole 40 mg tablet,delayed 40 mg PO QDAY #90 tabs 06/07/21 release (Protonix) pantoprazole 40 mg tablet,delayed 40 mg PO QDAY #30 tabs 09/29/23 release (Protonix) ibuprofen 800 mg tablet 800 mg PO TID PRN pain #30 tabs 08/23/24 sulfamethoxazole 800 1 tab PO BID 7 days #14 tabs 10/24/24 mg-trimethoprim 160 mg tablet (Bactrim DS) Allergies Allergy/AdvReac Type Severity Reaction Status Date / Time No Known Allergies Allergy Verified 10/24/24 17:54 Review of Systems Review of Systems Systems Reviewed: All systems reviewed, normal except as documented Constitutional Constitutional: Reports system reviewed and no additional complaints, except as documented, Denies fever(s) and Denies headache(s) ENT Ears, Nose, Mouth, and Throat: Denies disequilibrium and Denies headache(s) Cardiovascular Cardiovascular: Reports system reviewed and no additional complaints, except as documented, Denies chest pain and Denies dyspnea Respiratory Respiratory: Reports system reviewed and no additional complaints, except as documented, Denies cough and Denies dyspnea Gastrointestinal Gastrointestinal: Reports system reviewed and no additional complaints, except as documented, Denies abdominal pain, Denies nausea and Denies vomiting Integumentary/Breasts Skin/Breast: Reports as per HPI and Reports skin pain Neurologic Neurologic: Reports system reviewed and no additional complaints, except as documented, Denies confusion, Denies disequilibrium and Denies headache(s) Psychiatric Psychiatric: Denies confusion Past Medical History Past Medical History CARDIAC: Negative Congestive Heart Failure RESPIRATORY: Negative Chronic Obstructive Pulmonary Disease (COPD) GENITOURINARY: Negative Renal Disease ENDOCRINE: Negative Diabetes Mellitus Type 1 or Diabetes Mellitus Type 2 PSYCHO/SOCIAL: Positive Psychiatric Problems, Recreational Drug Use, Depression, Anxiety and Behavior Problems Surgical History SURGICAL: Positive Tubal Ligation Social History SMOKING STATUS: Light (< 1 pack/day) ED Exam General Limitations: Present no limitations General appearance: Present alert and in no apparent distress Head Head exam: Present atraumatic Eye Eye exam: Present normal appearance, PERRL and EOMI ENT ENT exam: Present normal exam, normal oropharynx and mucous membranes moist Neck Neck exam: Present normal inspection, full ROM and trachea midline Chest Chest inspection: Present normal inspection and symmetric chest wall rise Respiratory Respiratory exam: Present normal lung sounds bilaterally Cardiovascular Cardiovascular exam: Present regular rate, normal rhythm and normal heart sounds Abdominal Exam Abdominal exam: Present soft and normal bowel sounds Extremities Exam Extremities exam: Present full ROM Expanded Upper Extremity Exam Hand exam: Present full ROM, tenderness, swelling, laceration (R dorsal index finger healing 1 cm ) and erythema Back Exam Back exam: Present normal inspection and full ROM Neurological Exam Neurological exam: Present alert, oriented X3 and CN II-XII intact Psychiatric Psychiatric exam: Present normal affect and normal mood Skin Skin exam: Present warm, dry, intact and normal color Course Quality Measures none Orders Category Date Time Status Wound Care NOW Care 10/24/24 18:49 Completed TET,DIP/PERT AC (Adult)-Tdap [Boostrix Adult (Tdap) Med 10/24/24 18:49 Discontinued Vacc] 0.5 ml IMI .ONCE ONE Trimethoprim/Sulfa 160/800 Ds [Bactrim Ds] Med 10/24/24 18:49 Discontinued 1 tab PO X1 ONE Vital Signs Vital signs: Vital Signs Temperature 98.5 F 10/24/24 18:38 Pulse Rate 100 10/24/24 18:38 Respiratory Rate 18 10/24/24 18:38 Blood Pressure 126/76 10/24/24 18:38 Pulse Oximetry (%) 95 10/24/24 18:38 Oxygen Delivery Method Room Air 10/24/24 18:38 O2 at 95% on RA and WNLs Skin / Abscess / Foreign Body MDM Narrative MDM Narrative:: 44F with history of drug use and homelessness presents to ED with R index finger lac/pain and R knuckle swelling for 2 days when she accidentally cut herself. Patient has not had a tetanus shot in the past 5 years. Physical exam reveals healing 1 cm lac on R dorsal index finger with some surrounding swelling/redness, as well as R knuckle swelling/redness. ROM intact. No pain with ROM. Patient is afebrile, calm, and alert. Lac is already scabbed over. Patient declines XR. ABX and tdap given. Patient data External records reviewed:: [facility] [place] Clinical information provided by:: patient Social determinants that could affect healthcare access:: housing Patient has the following chronic illnesses:: drug use and homelessness How is presenting disease/condition affected by chronic disease/condition?: exacerbated by Evaluation data The following diagnostics were reviewed and interpreted by me:: other (specify) (none) Lab and/or radiology exams considered but not ordered:: not ordered Interpretation Summary: n/a Medications / Prescriptions Medications or Prescriptions considered but not ordered:: ordered Medication administrations:: Medication Administration History Discontinued Medications Diphtheria/Tetanus/Acell Pertussis (Diphth,Pertuss(Acell),Tet Vac 0.5 Ml Syr- Adult) 0.5 ml IMi .ONCE ONE Stop: 10/24/24 18:50 Last Admin: 10/24/24 19:27 Dose: 0.5 ml Documented By: Trimethoprim/Sulfamethoxazole (Trimethoprim/Sulfa 160/800 Ds Tablet) 1 tab PO X1 ONE Stop: 10/24/24 18:50 Last Admin: 10/24/24 19:27 Dose: 1 tab Documented By: above Consultations Consultation(s) initiated? (list below): No Diagnosis Skin/Abscess Differential Diagnosis: abscess of skin or subcutaneous tissue, viral exanthem, dermatophytosis, urticaria, herpes zoster, allergic reaction to drug, cellulitis, eczema, insect bites, impetigo, contact dermatitis and other (laceration) Most likely diagnosis given after review of the tests above:: cellulitis and laceration Admission Indicated Admission indicated?: not indicated Admission Request Was there a request for admission?: No Disposition Plan Disposition Plan: Discharge Discharge Attestation Discharge Attestation: The patient and all family members were given an opportunity to ask questions and understood the discharge instructions. Discharge instructions specifically effects, indications for sooner follow up or return to the emergency department, and the expected course of current diagnosis. Patient condition: Stable Discharge Plan Plan Patient Disposition: HOME (Self Care) Disposition Comment: STable Prescriptions/Referrals Prescriptions/Med Rec: New sulfamethoxazole-trimethoprim [Bactrim DS] 800-160 mg tablet 1 tab PO BID 7 Days Qty: 14 0RF No Action pantoprazole [Protonix] 40 mg Tablet,Delayed Release (Dr/Ec) 40 mg PO QDAY Qty: 90 0RF ibuprofen 800 mg tablet 800 mg PO TID PRN (Reason: pain) Qty: 30 0RF pantoprazole [Protonix] 40 mg tablet,delayed release (DR/EC) 40 mg PO QDAY Qty: 30 0RF Problem List Clinical Impression: Cellulitis Patient/Caregiver Discharge Instructions Education Materials: ED Cellulitis Additional Instructions: Please follow-up with PCP within 24-48 hours and return immediately if symptoms worsen. Print Language: New Zealander Stand Alone Forms: Patient Portal Info Letter PA/SILVERWARE BUFFING MACHINE OPERATOR Supervising Physician PA/YAEL Supervising Physician: Dr. Martines
== END 2024-10-24 19:40 | disposition home or self-care (01) ==
LOC: SERX 19:35
PROVIDERS: Emergency Provider Emergency Medicine; PCP Family Medicine
DX: S61.210A Laceration without foreign body of right index finger without damage to nail, initial encounter (principal); L03.011 Cellulitis of right finger; W45.8XXA Other foreign body or object entering through skin, initial encounter; Z23 Encounter for immunization; Z59.00 Homelessness unspecified
CPT/HCPCS: 90471; 90715; 99282; A9270

== ENCOUNTER 2025-01-01 17:43 | Emergency (ER) | payer MEDICAID, SELFPAY ==
[2025-01-01 17:49] VITALS: BP 96/64; PULSE 88; RESP 16; TEMP 36.6; O2SAT 100; BMI 22.1
[2025-01-01 18:05] VITALS: PULSE 96; RESP 16; O2SAT 91; BMI 27.4
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
[2025-01-01 19:30] VITALS: BP 103/66; PULSE 93; RESP 16; TEMP 36.9; O2SAT 100
--- NOTE | 2025-01-01 19:31 | PC.NURSE ---
Pt offloaded from EMS [facility] into room 7. Provider attempted to assess pt but she stated she wanted to leave. Pt able to state her name, where she was, the current year, and situation. Pt declined to state her reasoning as to why she wanted to leave, but repeated multiple times I just want to leave . Pt signed out AMA. Pt encouraged to return to ED at any time for further evaluation.
== END 2025-01-01 19:39 | disposition left against medical advice (07) ==
LOC: SERX 19:41
PROVIDERS: Emergency Provider Emergency Medicine; PCP Family Medicine
DX: S40.021A Contusion of right upper arm, initial encounter (principal); Y09 Assault by unspecified means; Z53.29 Procedure and treatment not carried out because of patient's decision for other reasons; Z59.00 Homelessness unspecified
CPT/HCPCS: 80053; 80307; 80320; 81001; 82550; 82803; 83605; 85025; 87086; 99281; G0480

== ENCOUNTER 2025-01-03 09:17 | Emergency (ER) | payer MEDICAID, SELFPAY ==
[2025-01-03 09:17] VITALS: PULSE 77; RESP 18; O2SAT 98
[2025-01-03 09:31] VITALS: BP 98/64; PULSE 61; RESP 16; TEMP 36.5; O2SAT 98; BMI 21.4
--- NOTE | 2025-01-03 09:52 | PD.EDRME ---
Rapid Medical Screening Exam RME Arrival date/time: 01/03/25 09:17 44-year-old female who is homeless and uses methamphetamine last use yesterday presents to the emergency department today for complaint of generalized fatigue Chief Complaint: Weakness Vital signs: Vital Signs Temperature 97.7 F 01/03/25 09:31 Pulse Rate 61 01/03/25 09:31 Respiratory Rate 16 01/03/25 09:31 Blood Pressure 98/64 01/03/25 09:31 Pulse Oximetry (%) 98 01/03/25 09:31 Oxygen Delivery Method Room Air 01/03/25 09:31
[2025-01-03 10:32] LABS: Basophils % (Auto) 1 % (0-2.5); Eosinophils # (Auto) 0.1 Thou/mm3 (0.0-0.5); Eosinophils % (Auto) 2 % (0-10); Hematocrit 48.5 % (36.0-46.0); Hemoglobin 16.7 g/dL (12.0-16.0); Immature Granulocytes % (Auto) 0 % (0-0); Immature Granulocytes Auto 0.01 Thou/mm3 (0.00-0.00); Lymphocytes # (Auto) 2.1 Thou/mm3 (1.0-4.8); Lymphocytes % (Auto) 38 % (10-50); Mean Corpuscular HGB Conc 34.4 g/dl (31.0-37.0); Mean Corpuscular Hemoglobin 31.7 pg (25.0-35.0); Mean Corpuscular Volume 92 fL (80-100); Monocytes # (Auto) 0.4 Thou/mm3 (0.0-0.8); Monocytes % (Auto) 7 % (0-12); Neutrophils # (Auto) 2.9 Thou/mm3 (1.8-7.7); Neutrophils % (Auto) 52 % (37-80); Nucleated Red Blood Cell % 0 /100 WBC (0); Platelet Count 335 Thou/mm3 (140-440); RDW Standard Deviation 42.8 fL (36.4-46.3); Red Blood Count 5.27 Miln/mm3 (4.00-5.20); White Blood Count 5.6 Thou/mm3 (3.6-11.0)
--- NOTE | 2025-01-03 10:48 | PC.NURSE ---
PT REMINDED OF NEED FOR URINE SAMPLE.
[2025-01-03 10:50] LABS: Alanine Aminotransferase 16 U/L (10-49); Albumin, Serum 5.1 gm/dL (3.5-5.0); Albumin/Globulin Ratio 2.1 (1.2-2.2); Alkaline Phosphatase 77 U/L (46-116); Anion Gap 9 (7-16); BUN/Creatinine Ratio 14 Ratio (12-20); Bilirubin,Total 0.6 mg/dL (0.3-1.2); Blood Urea Nitrogen 11 mg/dL (9-23); Calcium 9.9 mg/dL (8.3-10.6); Calcium (Corrected) 9.9 mg/dL (8.5-10.1); Carbon Dioxide 28.7 mMol/L (20.0-31.0); Chloride 103 mMol/L (98-107); Creatinine (Component) 0.8 mg/dL (0.6-1.3); Estimated Creatinine Clearance 74.2 mL/min (>60); Globulin 2.4 gm/dL (2.3-3.5); Glucose 85 mg/dL (74-106); Lipase 47 U/L (12-53); Osmolality,Calculated 279 (275-295); Sodium 141 mMol/L (136-145); Total Protein 7.5 gm/dL (5.7-8.2); Troponin I < 0.002 ng/mL (0.0-0.045); eGFR > 60 See Note
[2025-01-03 11:11] LABS: Collection Type, Urine Clean Catch
[2025-01-03 11:26] LABS: Bilirubin,Urine Negative (Negative); Blood,Urine Negative (Negative); Calcium Oxalate Crystals,Urine 2+; Clarity,Urine Clear (Clear/Hazy); Color,Urine Yellow (Lt Yel-Yel); Culture Indicated,Urine Not Indicated; Glucose, Urine Negative (Negative); Ketones,Urine Trace (Negative); Leukocyte Esterase,Urine Positive (Negative); Nitrite,Urine Negative (Negative); Protein,Urine 1+ (Neg - Trace); RBC,Urine 4 /hpf (0-3); Specific Gravity,Urine 1.036 (1.001-1.035); Squamous Epithelial Cell,Urine 13 /hpf (0-5); WBC,Urine 3 /hpf (0-5)
[2025-01-03 11:29] LABS: HCG Qualitative,Urine Negative
[2025-01-03 11:45] LABS: Alcohol, Urine Negative (Negative); Amphetamine/Methamp Scrn,U Positive (Negative); Barbiturate Screen,Urine Negative (Negative); Benzodiazepines Screen,Urine Negative (Negative); Benzoylecgonine Screen, Ur Negative (Negative); Fentanyl Screen,Urine Negative (Negative); Opiate Screen,Urine Negative (Negative); THC Screen,Urine Negative (Negative)
[2025-01-03 14:25] VITALS: BP 95/63; PULSE 59; RESP 17; TEMP 36.3; O2SAT 100
--- NOTE | 2025-01-03 14:58 | PD.EDWEAK ---
ED Weakness RME/HPI General Chief complaint: Psychiatric Symptoms Stated complaint: WEAKNESS, DEHYDRATION Time Seen by Provider: 01/03/25 14:18 Arrival date/time: 01/03/25 09:17 This is a 44-year-old female who reports that she is homeless and uses methamphetamines. Patient states symptoms started yesterday. Patient states she just feels tired and feels weak. Patient denies any cough, sore throat, runny nose. Patient denies fever or chills. Patient denies any urinary symptoms. Patient denies nausea vomiting diarrhea. RME / HPI RME / HPI Narrative: 01/03/25 09:17 44-year-old female who is homeless and uses methamphetamine last use yesterday presents to the emergency department today for complaint of generalized fatigue Related Data Previous Rx's ?Medication ?Instructions ?Recorded pantoprazole 40 mg tablet,delayed 40 mg PO QDAY #90 tabs 06/07/21 release (Protonix) pantoprazole 40 mg tablet,delayed 40 mg PO QDAY #30 tabs 09/29/23 release (Protonix) ibuprofen 800 mg tablet 800 mg PO TID PRN pain #30 tabs 08/23/24 Allergies Allergy/AdvReac Type Severity Reaction Status Date / Time No Known Allergies Allergy Verified 01/01/25 18:15 Review of Systems Review of Systems Systems Reviewed: All systems reviewed, normal except as documented Past Medical History Past Medical History CARDIAC: Negative Congestive Heart Failure RESPIRATORY: Negative Chronic Obstructive Pulmonary Disease (COPD) GENITOURINARY: Negative Renal Disease ENDOCRINE: Negative Diabetes Mellitus Type 1 or Diabetes Mellitus Type 2 PSYCHO/SOCIAL: Positive Psychiatric Problems, Recreational Drug Use, Depression, Anxiety and Behavior Problems Surgical History SURGICAL: Positive Tubal Ligation Social History SMOKING STATUS: Light (< 1 pack/day) ED Exam Narrative Physical exam: VITAL SIGNS: Reviewed. GENERAL APPEARANCE: Alert and interactive, follows commands, no acute distress, HEAD AND FACE: Non-traumatic. ENT: PERRL, conjuctiva pink and clear, eyelid no trauma, Mucous membrane moist. NECK: Supple, nontender, no nuchal rigidity. CHEST: No tenderness, no crepitus, no paradoxical movement, no retractions. LUNGS: Clear, well ventilated, symmetric, no rales, no wheezing, no rhonchi, no stridor, good breath sounds bilaterally. HEART: Regular rate, regular rhythm, no murmur, no gallops. ABDOMEN: Soft, nondistended, no guarding, nontender, no rebound, no masses, NEUROLOGICAL: Gross motor function intact sensory function intact, Appropriate for age. MUSCULOSKELETAL: low back nontender, full range of motion. EXTREMITIES: No redness no swelling no skin breakdown on bilateral foot and leg. Distal neurovascular status intact bilateral foot SKIN: Color pink, dry, no rash, no lacerations, no abrasions, no contusions. Course Orders Category Date Time Status Consult Natural Resource Economist NOW Care 01/03/25 15:08 Completed Diet Regular Diet 01/03/25 Dinner Active Alcohol, Urine Stat Lab 01/03/25 10:56 Completed CBC Stat Lab 01/03/25 10:00 Completed Comprehensive Metabolic Panel Stat Lab 01/03/25 10:00 Completed Drug Screen,Urine Stat Lab 01/03/25 10:56 Completed HCG Qualitative,Urine Stat Lab 01/03/25 10:52 Completed Lipase Stat Lab 01/03/25 10:00 Completed Troponin I Stat Lab 01/03/25 10:00 Completed UA, C/S IF [Urinalysis, C/S if Indicated] Stat Lab 01/03/25 10:52 Completed Vital Signs Vital signs: Vital Signs Temperature 97.7 F 01/03/25 09:31 Pulse Rate 61 01/03/25 09:31 Respiratory Rate 16 01/03/25 09:31 Blood Pressure 98/64 01/03/25 09:31 Pulse Oximetry (%) 98 01/03/25 09:31 Oxygen Delivery Method Room Air 01/03/25 09:31 Weakness MDM Narrative MDM Narrative:: Patient has a white count of 5.6. Hemoglobin and hematocrit are 16.7 and 48.5. BMP unremarkable urine shows some leukocyte Estrace RBCs. Drug screen positive for amphetamines. Spoke to patient at length. Patient states she is homeless. Patient states that sometimes she feels very sad and has felt suicidal in the past. Patient denies homicidal and suicidal ideations at this time. Will have social science manager talk to patient. metal worker talk to the patient and patient okay to be discharged. Patient medically cleared. Patient waiting for a ride to the homeless long-term. Discharge Plan Plan Patient Disposition: HOME (Self Care) Patient condition on transfer: Stable Prescriptions/Referrals Prescriptions/Med Rec: No Action pantoprazole [Protonix] 40 mg Tablet,Delayed Release (Dr/Ec) 40 mg PO QDAY Qty: 90 0RF ibuprofen 800 mg tablet 800 mg PO TID PRN (Reason: pain) Qty: 30 0RF pantoprazole [Protonix] 40 mg tablet,delayed release (DR/EC) 40 mg PO QDAY Qty: 30 0RF Referrals: No Primary/Family,Physician [Primary Care Provider] - In 1 week Problem List Clinical Impression: Weakness, Amphetamine use Patient/Caregiver Discharge Instructions Discharge Activity: activity as tolerated Education Materials: Substance Abuse and Traumatic ..., Understanding Methamphetamine ..., ED Weakness (Uncertain Cause) Additional Instructions: Follow up with primary provider in 1-2 days. Come back to ED if symptoms change or worsen Print Language: Italian Stand Alone Forms: Ira Award Info., Patient Portal Info Letter PA/FISCAL CLERK Supervising Physician PA/FISCAL CLERK Supervising Physician: yady
--- NOTE | 2025-01-03 15:48 | PC.CC ---
Addendum entered by Brittni Oro 01/03/25 16:08: Fence Gate Assembler received telephone call from mother Alyssa-clothes for Pt have been dropped off at [employer]. Fence Gate Assembler will begin setting at transportation via [employer] to [facility]. 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 Pt reported experiencing visual hallucinations. Pt reported using meth for the past 8 years. Pt reported is transient and is wanting somewhere safe to go to. Pt denying SI/HI and self injuries behavior. At this time Pt does not meet criteria for a 5150 hold. Fence Gate Assembler offered community resources- shelters, housing, ect. Pt was agreeable to [facility]: [facility], [address] [place] [address] . Pt requested to contact Alyssa Vasquez [phone] and request for clothes to be dropped off. Fence Gate Assembler offered clothes, Pt declined. Fence Gate Assembler brought food/drink to Pt.
[2025-01-03 17:01] VITALS: BP 101/61; PULSE 65; RESP 18; TEMP 36.8; O2SAT 98
[2025-01-03 18:11] VITALS: BP 111/68; PULSE 81; RESP 16; TEMP 36.9; O2SAT 98
--- NOTE | 2025-01-03 19:30 | PC.NURSE ---
Pt resting with eyes closed. Respirations are even and unlabored. No s/s of acute distress noted. Call light within reach. Plan of care ongoing.
[2025-01-03 21:55] VITALS: BP 101/64; PULSE 55; RESP 17; TEMP 36.7; O2SAT 97
--- NOTE | 2025-01-03 22:21 | PC.NURSE ---
HAVE ATTEMPTED [employer] WITH NO SUCCESS.
[2025-01-04] VITALS: BP 110/62; PULSE 55; RESP 16; TEMP 36.6; O2SAT 97
--- NOTE | 2025-01-04 | PC.NURSE ---
Pt is awake/alert/oriented x3. No s/s of acute distress noted. Discussed plan of care, verbalized understanding.
[2025-01-04 03:00] VITALS: BP 97/65; PULSE 60; RESP 16; TEMP 36.8; O2SAT 100
--- NOTE | 2025-01-04 05:05 | PC.NURSE ---
Pt awake/alert/oriented x3. No s/s of av=Pt out of bed to use restroom. Milk and annie crackers given to pt as requested. Plan of care ongoing.
[2025-01-04 05:15] VITALS: BP 98/73; PULSE 69; RESP 18; TEMP 36.5; O2SAT 97
[2025-01-04 06:50] VITALS: BP 95/54; PULSE 62; RESP 17; TEMP 36.6; O2SAT 97
--- NOTE | 2025-01-04 07:11 | PC.CC ---
Paula AYON was consulted regarding transportation to [place] for the patient. ASW met with the patient face to face to confirm that she is going to [facility] in [place]. Patient was receptive. ASW arrangved transportation for the patient via [employer].
[2025-01-04 07:19] VITALS: BP 95/64; PULSE 68; RESP 18; TEMP 36.3; O2SAT 98
== END 2025-01-04 07:14 | disposition home or self-care (01) ==
PROVIDERS: Nurse Practitioner Primary Care; Emergency Provider Family Medicine
DX: F15.90 Other stimulant use, unspecified, uncomplicated (principal); R53.1 Weakness
CPT/HCPCS: 36415; 80053; 80307; 80320; 81001; 81025; 83690; 84484; 85025; 96127; 99284; G0480